=== PATIENT | male | born 1965 | race Caucasian/White ===

== ENCOUNTER 2016-06-22 16:35 | Emergency (ER) | payer OTHER ==
[~2016-06-22 16:35] MED LIST: ACET-1256 PO; AMOX875T PO; ASPI-435 PO; DOCU-94 PO; FAMO1TAB PO; LRS10 PO; MAGN64TA4 PO; MIDO10TA PO; MULT-506 PO; OXYC1TAB3 PO; POLY1POW2 PO; SENN8.6T13 PO; SULF800T23 PO
[2016-06-22 16:38] VITALS: TEMP 36.8
--- NOTE | 2016-06-22 16:59 | EMERGENCY ROOM VISIT NOTE ---
History Report prepared by Juan: Raiza Velazquez Under the Supervision of: Dr. Loida Gore M.D. First contact with patient: 16:44 Chief Complaint: URINARY SYMPTOMS Stated Complaint: CATHETER History of Present Illness The patient is a 51 year old male who presents to the Emergency Room with complaints of a possibly plugged urinary catheter. He reports he noticed " chunky blood" coming from his catheter today, and decreased urinary output. He has a history of penile and metastatic testicular cancer and states he has had a catheter for about 10 years. He has undergone both a penectomy and radical orchiectomy. He follows with [facility] in [place] for Urology care. The patient is a bilateral above the knee amputee. He has a suprapubic wound from trauma related to clothing, but has had it debrided at [facility] in the past. He denies any recent fevers and states he has felt pretty good recently. Source of History: patient Onset: [employer] Position: other (penis) Associated Symptoms: + urinary symptoms, No fevers Review of Systems See HPI for pertinent positives & negatives. A total of 10 systems reviewed and were otherwise negative. Past Medical & Surgical Medical Problems: (1) Anemia (2) Cardiomegaly (3) Esophageal Reflux (4) Gangrene (5) Hyperlipidemia Nec/Nos (6) Hypertension Nos (7) metastatic testicular cancer (8) Osteomyelitis (9) Paraplegia (10) Pyelonephritis Nos (11) Testicular cancer (12) UTI (urinary tract infection) Surgical Problems: (1) left inguinal radical orchiectomy Family History No pertinent family history Social History Smoking Status: Never Smoker Alcohol Use: none Drug Use: none Marital Status: single Housing Status: lives with family Occupation Status: disabled Current/Historical Medications Scheduled Amoxicillin & Pot Clavulanate (Augmentin 875-125 mg), 1 TAB PO BID Aspirin (Aspirin 81), 1 TAB PO DAILY Ciprofloxacin Hcl (Cipro), 500 MG PO BID Diazepam (Diazepam), 1.5 TAB PO DAILY Famotidine (Acid Controller Maximum S), 1 TAB PO BID Magnesium Chloride (Mag64), 2 TABS PO DAILY Metoprolol Tartrate (Lopressor) (Lopressor), 25 MG PO BID Midodrine Hcl (Midodrine Hcl), 5 MG PO TID Multivitamin (Multivitamin), 1 TAB PO DAILY Polyethylene Glycol 3350 (Bulk (Polyethylene Glycol 3350), 17 GM PO DAILY Sulfa/Trimethoprim (Bactrim Ds 800MG/160MG), 1 TAB PO BID Zolpidem Tartrate (Zolpidem Tartrate), 10 MG PO HS Allergies Coded Allergies: No Known Allergies (Verified , 08/10/15) Physical Exam Vital Signs Date Time Temp Pulse Resp B/P Pulse Ox O2 Delivery O2 Flow Rate FiO2 06/22/16 18:27 65 18 83/48 96 06/22/16 17:55 65 18 83/48 96 Room Air 06/22/16 16:38 36.8 60 20 112/73 96 Room Air Physical Exam Vital signs reviewed. General: Well-appearing 51 year old male, in no significant distress. HEENT: No scleral icterus, PERRLA, neck supple. Atraumatic. Cardiovascular: Regular rate and rhythm, no extra sounds. Pulmonary: Clear to auscultation bilaterally, normal work of breathing. Abdomen: Soft, nontender, nondistended, positive bowel sounds. Suprapubic wound from trauma related to clothing/buckle. : Post-surgical changes to genitals, catheter in place. Musculoskeletal: Atraumatic, no peripheral edema. Neurologic: Patient awake alert and oriented x 3, full strength in all 4 extremities. Cranial nerves 2 through 12 grossly intact. Skin: Warm, dry, no rash Medical Decision & Procedures Laboratory Results Test 06/22/16 17:05 Urine Color YELLOW Urine Appearance CLOUDY (CLEAR) Urine pH 6.0 (4.5-7.5) Urine Specific [place] 1.007 (1.000-1.030) Urine Protein NEG (NEG) Urine Glucose (UA) NEG (NEG) Urine Ketones NEG (NEG) Urine Occult Blood 1+ (NEG) Urine Nitrite POS (NEG) Urine Bilirubin NEG (NEG) Urine Urobilinogen NEG (NEG) Urine Leukocyte Esterase LARGE (NEG) Urine WBC (Auto) >30 /hpf (0-5) Urine RBC (Auto) 0-4 /hpf (0-4) Urine Hyaline Casts (Auto) 5-10 /lpf (0-5) Urine Epithelial Cells (Auto) 5-10 /lpf (0-5) Urine Bacteria (Auto) NEG (NEG) Urine Pathogenic Casts 0-3 WBC CASTS /lpf (0) Laboratory results per my review. Medications Administered Medications (Trade) Dose Ordered Sig/Zach Route Start Time Stop Time Status Last Admin Dose Admin Ciprofloxacin (Cipro Tab) 500 mg NOW STAT PO 06/22/16 17:46 06/22/16 17:47 DC 06/22/16 17:58 500 MG ED Course 1654: Past medical records reviewed. The patient was evaluated in room A2. A complete history and physical examination was performed. 174: Cipro 500 mg PO. 1814: I reevaluated the patient. He is feeling well. I discussed his results and discharge instructions and he verbalized complete understanding and agreement. Medical Decision Differential diagnosis: Etiologies such as infection, dysuria, hematuria, urethritis, cystitis. This patient was evaluated and appeared to be in no significant distress. Nursing staff had replaced the patient's Cloud catheter which was draining well. Urinalysis was obtained and is significant for infectious signs and will be sent for culture. The patient takes Augmentin and Bactrim for chronic sacral wound. Upon review the patient's urine cultures, Cipro will be added for coverage of the UTI. Patient is aware of the plan and agrees. He will follow-up with his physician for reevaluation this week and return to the ER for worsening of symptoms or any medical concerns. Impression Primary Impression: Malfunction of indwelling urinary catheter Additional Impression: UTI (urinary tract infection) Scribe Attestation The scribe's documentation has been prepared under my direction and personally reviewed by me in its entirety. I confirm that the note above accurately reflects all work, treatment, procedures, and medical decision making performed by me. Departure Information Dispostion Home / Self-Care Prescriptions Ciprofloxacin Hcl (CIPRO) 500 Mg Tab 500 MG PO BID, #14 TAB Prov: Loida Gore M.D. 06/22/16 Referrals Titi Clemente M.D. (PCP) Patient Instructions My [facility] Additional Instructions Diagnosis: UTI, blocked catheter Cipro 500 mg twice daily for 7 days. Drink plenty of fluids. Follow up with your doctor for reevaluation. Return to emergency for worsening of symptoms or any medical concerns. Problem Qualifiers Primary Impression: Malfunction of indwelling urinary catheter Encounter type: initial encounter Qualified Codes: T83.011A - Breakdown ( mechanical) of indwelling urethral catheter, initial encounter Additional Impression: UTI (urinary tract infection) Urinary tract infection type: catheter-associated UTI Indwelling urinary catheter type: indwelling urethral catheter Encounter type: initial encounter Qualified Codes: T83.511A - Infection and inflammatory reaction due to indwelling urethral catheter, initial encounter; N39.0 - Urinary tract infection, site not specified
[2016-06-22] MEDS ORDERED: MIDO5TAB PO (17:24)
[2016-06-22] MEDS ORDERED: METO25TA56 PO (17:24)
[2016-06-22] MEDS ORDERED: VLM2 PO (17:25)
[2016-06-22 17:30] LABS: URINE APPEARANCE CLOUDY (CLEAR); URINE BILIRUBIN NEG (NEG); URINE COLOR YELLOW; URINE NITRITE POS (NEG); URINE SPECIFIC GRAVITY 1.007 (1.000-1.030); UROBILINOGEN NEG (NEG); ZZURINE CULT IF INDIC CATH YES
[2016-06-22 17:32] LABS: MANUAL MICROSCOPIC REQUIRED? NO; REVIEW REQ? YES
[2016-06-22] MEDS ORDERED: ZOLP10TA6 PO (17:36)
[2016-06-22] MEDS ORDERED: CIPROFLOXACIN 500 MG TAB PO STA (17:46)
[2016-06-22 17:56] LABS: URINE PATH CASTS 0-3 WBC CASTS /lpf (0)
[2016-06-22] MEDS ORDERED: CIPR-255 PO (18:14)
[2016-06-22 18:27] VITALS: BP 83/48; PULSE 65; O2SAT 96
== END 2016-06-22 18:28 | disposition home or self-care (01) ==
LOC: C.EDB 16:36 → C.EDA 18:28
DX: T83.192A Other mechanical complication of indwelling ureteral stent, initial encounter (principal); N39.0 Urinary tract infection, site not specified; Y84.6 Urinary catheterization as the cause of abnormal reaction of the patient, or of later complication, without mention of misadventure at the time of the procedure; K21.9 Gastro-esophageal reflux disease without esophagitis; E78.5 Hyperlipidemia, unspecified; I10 Essential (primary) hypertension; G82.20 Paraplegia, unspecified; Z85.47 Personal history of malignant neoplasm of testis; Z79.82 Long term (current) use of aspirin

== ENCOUNTER 2016-07-17 11:17 | Emergency (ER) | payer OTHER ==
[~2016-07-17 11:17] MED LIST changes: -ACET-1256 PO; +CIPR-255 PO; -DOCU-94 PO; -LRS10 PO; +METO25TA56 PO; -MIDO10TA PO; +MIDO5TAB PO; -OXYC1TAB3 PO; -SENN8.6T13 PO; +VLM2 PO; +ZOLP10TA6 PO
[2016-07-17 11:20] VITALS: TEMP 36.5
[2016-07-17 13:29] LABS: URINE APPEARANCE CLEAR (CLEAR); URINE BILIRUBIN NEG (NEG); URINE COLOR YELLOW; URINE NITRITE NEG (NEG); URINE PH 6.5 (4.5-7.5); UROBILINOGEN NEG (NEG); ZZURINE CULT IF INDIC CATH YES
[2016-07-17 13:36] LABS: MANUAL MICROSCOPIC REQUIRED? NO; REVIEW REQ? YES
[2016-07-17 13:43] VITALS: BP 93/51; PULSE 49; O2SAT 100
--- NOTE | 2016-07-17 16:56 | EMERGENCY ROOM VISIT NOTE ---
History First contact with patient: 12:12 Chief Complaint: CATHETER REPLACEMENT Stated Complaint: CATH TUBE IS PLUGGED UP AND CAN'T GET OFF History of Present Illness The patient is a 51 year old male who presents to the Emergency Room with complaints of a plugged urinary catheter. The patient reports that he has had no urinary output since last night, and reports that his abdomen is now getting bigger with more pressure. The patient has a history of penile and metastatic testicular cancer and states he has had a catheter for about 10 years. He has undergone both a penectomy and radical orchiectomy. He follows with urology at [facility] in [place]. He has a suprapubic wound as well that has been debrided at [facility] in the past. He denies any recent fevers or chills. His last catheter replacement was last week at the emergency department in [place]. Review of Systems 10 system review was performed and was negative except for pertinent positives and negatives as indicated in history of present illness Past Medical/Surgical History Medical Problems: (1) Anemia (2) Cardiomegaly (3) Esophageal Reflux (4) Gangrene (5) Hyperlipidemia Nec/Nos (6) Hypertension Nos (7) metastatic testicular cancer (8) Osteomyelitis (9) Paraplegia (10) Pyelonephritis Nos (11) Testicular cancer (12) UTI (urinary tract infection) Surgical Problems: (1) left inguinal radical orchiectomy Family History No pertinent family history Social History Smoking Status: Never Smoker Alcohol Use: none Drug Use: none Marital Status: single Housing Status: lives with family Occupation Status: disabled Current/Historical Medications Scheduled Amoxicillin & Pot Clavulanate (Augmentin 875-125 mg), 1 TAB PO BID Aspirin (Aspirin 81), 1 TAB PO DAILY Diazepam (Diazepam), 1.5 TAB PO DAILY Famotidine (Acid Controller Maximum S), 1 TAB PO BID Magnesium Chloride (Mag64), 2 TABS PO DAILY Metoprolol Tartrate (Lopressor) (Lopressor), 25 MG PO BID Midodrine Hcl (Midodrine Hcl), 5 MG PO TID Multivitamin (Multivitamin), 1 TAB PO DAILY Polyethylene Glycol 3350 (Bulk (Polyethylene Glycol 3350), 17 GM PO DAILY Sulfa/Trimethoprim (Bactrim Ds 800MG/160MG), 1 TAB PO BID Zolpidem Tartrate (Zolpidem Tartrate), 10 MG PO HS Allergies Coded Allergies: No Known Allergies (Verified , 07/17/16) Physical Exam Vital Signs Date Time Temp Pulse Resp B/P Pulse Ox O2 Delivery O2 Flow Rate FiO2 07/17/16 13:43 49 20 93/51 100 07/17/16 11:30 62 18 133/75 95 Room Air 07/17/16 11:20 36.5 62 18 76/58 94 Room Air Physical Exam CONSTITUTIONAL: Healthy and well nourished. Alert and oriented X 3 with positive affect. HEENT: Normocephalic, atraumatic. Pupils equal, round and reactive. NECK: Full active range of motion without discomfort. RESPIRATORY: Clear to auscultation bilaterally with no wheezing, crackles, rhonchi or stridor. CARDIOVASCULAR: Regular rate and rhythm with no murmurs, rubs or gallops. GASTROINTESTINAL: Bowel sounds present in all quadrants. Abdomen is protuberant but soft and nontender to palpation. No CVA tenderness. MUSCULOSKELETAL: The patient has bilateral above-knee amputations. INTEGUMENTARY: No rash or other significant dermatologic conditions noted. NEUROLOGIC: No focal neurologic deficits noted. Medical Decision & Procedures Laboratory Results Test 07/17/16 13:05 Urine Color YELLOW Urine Appearance CLEAR (CLEAR) Urine pH 6.5 (4.5-7.5) Urine Specific [place] 1.010 (1.000-1.030) Urine Protein 2+ (NEG) Urine Glucose (UA) NEG (NEG) Urine Ketones NEG (NEG) Urine Occult Blood 3+ (NEG) Urine Nitrite NEG (NEG) Urine Bilirubin NEG (NEG) Urine Urobilinogen NEG (NEG) Urine Leukocyte Esterase MODERATE (NEG) Urine WBC (Auto) >30 /hpf (0-5) Urine RBC (Auto) >30 /hpf (0-4) Urine Hyaline Casts (Auto) 1-5 /lpf (0-5) Urine Epithelial Cells (Auto) 10-20 /lpf (0-5) Urine Bacteria (Auto) NEG (NEG) Urine Renal Epithelial Cells /lpf (0-5) Urinalysis was reviewed. Cultures are pending. ED Course Patient history and physical exam were performed. Nurse's notes were reviewed. Vital signs were reviewed. The patient is afebrile. Initial blood pressure was 76/58. The patient reports that his blood pressure is usually low. Cloud catheter replacement was performed. Urinalysis is not suggestive of infection. Urine cultures are otherwise pending. The patient was instructed to follow- up with his urologist as needed for further management. The patient was happy with plan of care, and denied any discomfort at the time of discharge. Medical Decision Impression Primary Impression: Complication of catheter Departure Information Referrals Titi Clemente M.D. (PCP) Patient Instructions My [facility] Problem Qualifiers Primary Impression: Complication of catheter Encounter type: initial encounter Qualified Codes: T85.9XXA - Unspecified complication of internal prosthetic device, implant and graft, initial encounter
--- NOTE | 2016-07-19 15:01 | Pharmacy Progress Note ---
ED Pharmacist Culture FollowUp Date of Service: Jul 19, 2016. Yeast not C. albicans at 10,000 CFU/mL growing in urine culture. Spoke with Sven Carranza PA-C - likely contaminant. Patient has close follow-up with urology. No intervention required at this time.
== END 2016-07-17 13:45 | disposition home or self-care (01) ==
LOC: C.EDB 11:18 → C.EDC 13:45
DX: T85.9XXA Unspecified complication of internal prosthetic device, implant and graft, initial encounter (principal); Y84.6 Urinary catheterization as the cause of abnormal reaction of the patient, or of later complication, without mention of misadventure at the time of the procedure; K21.9 Gastro-esophageal reflux disease without esophagitis; E78.5 Hyperlipidemia, unspecified; G82.20 Paraplegia, unspecified; Z85.47 Personal history of malignant neoplasm of testis; Z79.82 Long term (current) use of aspirin

== ENCOUNTER → 2016-12-05 | Outpatient (CLI) | payer OTHER ==
[~2016-12-05] MED LIST changes: -CIPR-255 PO
[2016-12-05 17:04] LABS: BASO % 0.3 %; BASO ABS # 0.02 K/uL (0-0.2); COMPLETE YES; EOS % 4.1 %; HEMATOCRIT 38.7 % (42-52); IG% 0.2 %; LYMPH % 18.9 %; MEAN CELL VOLUME 77.1 fL (80-100); MEAN CORPUSCULAR HEMOGLOBIN 25.5 pg (25-34); MEAN CORPUSCULAR HGB CONC 33.1 g/dl (32-36); MEAN PLATELET VOLUME 10.2 fL (7.4-10.4); MONO % 9.3 %; NEUT % 67.2 %; PLATELET COUNT 233 K/uL (130-400); RED BLOOD COUNT 5.02 M/uL (4.7-6.1); WHITE BLOOD COUNT 5.81 K/uL (4.8-10.8)
[2016-12-05 17:27] LABS: ALT/SGPT 15 U/L (12-78); AST/SGOT 8 U/L (15-37); BLOOD UREA NITROGEN 8 mg/dl (7-18); BUN/CREATININE RATIO 14.4 (10-20); CALCIUM 8.6 mg/dl (8.5-10.1); CARBON DIOXIDE 28 mmol/L (21-32); CHLORIDE 112 mmol/L (98-107); CREATININE 0.55 mg/dl (0.60-1.40); GLUCOSE 75 mg/dl (70-99); POTASSIUM 3.6 mmol/L (3.5-5.1); SODIUM 145 mmol/L (136-145)
[2016-12-05 17:37] LABS: ALB/GLOB RATIO 0.8 (0.9-2); ALKALINE PHOSPHATASE 92 U/L (45-117); THYROID STIMULATING HORMONE 0.911 uIu/ml (0.300-4.500)
--- NOTE | 2016-12-13 11:34 | CODING QUERY MEDICAL NECESSITY ---
CQSUPPORTING DIAGNOSIS NEEDED A supporting diagnosis is required for the test/procedure performed on this patient in order for us to be reimbursed by the patient's insurance. Please provide a supporting diagnosis for the following test/procedure listed below next to the test name along with your signature. *If there is no additional diagnosis for this patient that would support the following test/procedure please document that below next to the test/procedure. Test(s)/Procedure(s) that require a supporting diagnosis: DOS 12/05/16 VITAMIN D TEST VITAMIN B12 TEST Provider Signature: Date: Thank you Desiree Richards Health Information Management Once completed, please kindly fax back to [phone] For questions please call [phone]
== END | disposition home or self-care (01) ==
LOC: C.LABBC 13:39
PROVIDERS: ATTEND Internal Medicine Geriatric Medicine
DX: G47.30 Sleep apnea, unspecified (principal); I42.2 Other hypertrophic cardiomyopathy; M86.9 Osteomyelitis, unspecified; D64.9 Anemia, unspecified; K21.9 Gastro-esophageal reflux disease without esophagitis

== ENCOUNTER → 2017-05-17 | Outpatient (CLI) | payer OTHER ==
[~2017-05-17] MED LIST changes: +ASCO10003 PO; +CYAN10005 PO; +DOXY100C2 PO; +GABA-112 PO; +NITR-5 PO; +SLWMEC PO; +VITAMIN B-12 PO; +VITAMIN C PO
== END | disposition home or self-care (01) ==
LOC: C.LABBC 12:58
PROVIDERS: ATTEND Family Medicine Adult Medicine
DX: N39.0 Urinary tract infection, site not specified (principal)

== ENCOUNTER 2017-06-17 17:55 | Emergency (ER) | payer OTHER ==
[~2017-06-17 17:55] MED LIST changes: -ASCO10003 PO; -CYAN10005 PO; -DOXY100C2 PO; -GABA-112 PO; -NITR-5 PO; -SLWMEC PO; -VITAMIN B-12 PO; -VITAMIN C PO
[2017-06-17 17:59] VITALS: TEMP 36.9
[2017-06-17] MEDS ORDERED: ONDANSETRON INJ 2 MG/ML 2 ML VIAL IV STA (18:09)
[2017-06-17] MEDS ORDERED: MoRPHine SULFATE 4 MG/ML 1 ML CARP\\VIAL IV STA (18:09)
[2017-06-17 19:00] LABS: BASO % 0.5 %; BASO ABS # 0.02 K/uL (0-0.2); EOS ABS # 0.22 K/uL (0-0.5); HEMOGLOBIN 12.2 g/dL (14.0-18.0); LYMPH % 23.2 %; LYMPH ABS # 1.02 K/uL (1.2-3.4); MEAN CELL VOLUME 76.6 fL (80-100); MEAN CORPUSCULAR HGB CONC 33.9 g/dl (32-36); MEAN PLATELET VOLUME 10.1 fL (7.4-10.4); MONO % 10.9 %; MONO ABS # 0.48 K/uL (0.11-0.59); NEUT % 60.4 %; NEUT ABS # 2.65 K/uL (1.4-6.5); PLATELET COUNT 167 K/uL (130-400); RED CELL DISTRIBUTION WIDTH CV 16.1 % (11.5-14.5); RED CELL DISTRIBUTION WIDTH SD 44.2 fL (36.4-46.3); WHITE BLOOD COUNT 4.39 K/uL (4.8-10.8)
[2017-06-17 19:17] LABS: ALBUMIN 2.7 gm/dl (3.4-5.0); ALT/SGPT 13 U/L (12-78); AST/SGOT 9 U/L (15-37); BLOOD UREA NITROGEN 13 mg/dl (7-18); CALCIUM 7.9 mg/dl (8.5-10.1); CARBON DIOXIDE 30 mmol/L (21-32); GLUCOSE 94 mg/dl (70-99); LIPASE 100 U/L (73-393); POTASSIUM 3.2 mmol/L (3.5-5.1); SODIUM 142 mmol/L (136-145)
[2017-06-17 19:20] LABS: ALKALINE PHOSPHATASE 73 U/L (45-117); TOTAL PROTEIN 6.6 gm/dl (6.4-8.2)
[2017-06-17] MEDS ORDERED: POTASSIUM CHLORIDE 10 MEQ TABCR PO STA (19:22)
--- NOTE | 2017-06-17 19:31 | DIAGNOSTIC IMAGING REPORT ---
CT SCAN OF THE ABDOMEN AND PELVIS WITHOUT CONTRAST CLINICAL HISTORY: Left flank pain COMPARISON STUDY: 08/10/2015 TECHNIQUE: CT scan of the abdomen and pelvis was performed from the lung bases to the proximal femurs. Images are reviewed in the axial, sagittal, and coronal planes. IV contrast was not administered for this examination. A dose lowering technique was utilized adhering to the principles of ALARA. CT DOSE: 1334.22 mGy.cm FINDINGS: Lower chest: There is lower lobe bronchial wall thickening. There is a small left pleural effusion and [id number] right pleural effusion. The heart is enlarged Liver: The unenhanced liver is normal in size, contour, and attenuation. There is no intrahepatic biliary ductal dilatation. Gallbladder: There are multiple gallbladder calculi. There is mild infiltration of the pericholecystic fat. Clinical correlation regards to acute cholecystitis is recommended. Spleen: Normal in size and attenuation. Pancreas: Unremarkable. Adrenal glands: Unremarkable. Kidneys: No left kidney is visualized. No right renal calculi are evident. There is no significant right-sided hydronephrosis. There is right-sided perinephric stranding. Bowel: There are no transition zones indicate bowel obstruction. There is no acute diverticulitis. There are no findings to indicate acute appendicitis. Appendix is not visualized with certainty. Peritoneum: There is no intraperitoneal free air or abdominal ascites. Vasculature: There are postsurgical changes of prior aortobiiliac stenting area the stent grafts appear compressed and are likely stenotic. Adenopathy: None. Pelvic viscera: There is indwelling Cloud catheter. Skeletal structures: There are chronic bilateral hip subluxations. The proximal right femur demonstrates a bone within bone appearance. There are persistent destructive changes at the lumbar sacral junction with a lumbosacral pseudoarticulation. There is angulation and subluxation of the sacrum with respect to the lower lumbar spine. There is extensive soft tissue/granulation tissue surrounding the lumbosacral junction IMPRESSION: 1. No left kidney is visualized 2. No right renal calculi are evident. 3. Cholelithiasis and mild pericholecystic infiltration. The findings are viewed as suspicious for acute cholecystitis and clinical correlation this regard is advocated 4. No evidence of bowel obstruction. No evidence of free air 5. Multiple skeletal abnormalities including destructive changes the lumbosacral junction. There is a lumbosacral pseudoarticulation, and there is anterior subluxation and angulation of the sacrum with respect to the lumbar spine. There is extensive soft tissue/granulation tissue surrounding the lumbosacral junction 6. Evidence of prior aortoiliac stents. Post stent grafts appear compressed and are likely stenotic/occluded. 7. Chronic bilateral hip subluxations of bilateral hip effusions 8. Small moderate right pleural effusion, small left pleural effusion. Bilateral lower lobe bronchial wall thickening. Electronically signed by: Jerardo Eller M.D. 06/17/2017 7:30 PM Dictated Date/Time: 06/17/2017 7:18 PM
--- NOTE | 2017-06-17 20:47 | DIAGNOSTIC IMAGING REPORT ---
CHEST ONE VIEW PORTABLE CLINICAL HISTORY: Shortness of breath. COMPARISON STUDY: 08/10/2015 CT scan of the abdomen pelvis dated 06/17/2017 FINDINGS: The heart is enlarged. There is pulmonary vascular congestion. There are suspected bilateral pleural effusions right greater than left. Increased markings in the lung bases, likely correspond to the bronchial wall thickening described on the recent CT scan. There is a left subclavian A-Port catheter present. IMPRESSION: Cardiomegaly with radiographic evidence of mild congestive failure/fluid overload. Electronically signed by: Jerardo Eller M.D. 06/17/2017 8:46 PM Dictated Date/Time: 06/17/2017 8:44 PM
[2017-06-17] MEDS ORDERED: DOXYCYCLINE HYCLATE 100 MG CAP PO ONE (21:00)
[2017-06-17] MEDS ORDERED: FUROSEMIDE INJ 20 MG in SYRINGE 0 ML IV ONE (21:00)
[2017-06-17] MEDS ORDERED: DOXY100C2 PO (21:01)
[2017-06-17] MEDS ORDERED: FUROSEMIDE 40 MG/4 ML VIAL ONE (21:06)
[2017-06-17 21:21] VITALS: BP 137/83; PULSE 50; O2SAT 92
--- NOTE | 2017-06-18 00:12 | EMERGENCY ROOM VISIT NOTE ---
History Report prepared by Juan: Иван Davis Under the Supervision of: Dr. Cole Sykes M.D. First contact with patient: 17:58 Chief Complaint: FLANK PAIN Stated Complaint: FLANK PAIN History of Present Illness The patient is a 52 year old male who presents to the Emergency Room with complaints of intermittent left sided abdominal/flank pain. The patient states that his left sided pain has been "on and off" for the past week, but worsened today. He describes the pain as a "dull" sensation, and notes that when he has the pain he feels a little short of breath. He otherwise denies any other shortness of breath. He also denies any associated chest pains or vomiting episodes. The patient has a catheter placed and is on an antibiotic for a urinary infection. He has no history of kidney stones. Source of History: patient Onset: 1 week Position: abdomen, back (left flank) Quality: dull Timing: intermittent, worsening Associated Symptoms: + vomiting, + urinary symptoms, No chest pain, No SOB Review of Systems See HPI for pertinent positives & negatives. A total of 10 systems reviewed and were otherwise negative. Past Medical & Surgical Medical Problems: (1) Anemia (2) Cardiomegaly (3) Esophageal Reflux (4) Gangrene (5) Hyperlipidemia Nec/Nos (6) Hypertension Nos (7) metastatic testicular cancer (8) Osteomyelitis (9) Paraplegia (10) Pyelonephritis Nos (11) Testicular cancer (12) UTI (urinary tract infection) Surgical Problems: (1) left inguinal radical orchiectomy Family History No pertinent family history Social History Smoking Status: Never Smoker Alcohol Use: none Drug Use: none Marital Status: single Housing Status: lives with family Occupation Status: disabled Current/Historical Medications Scheduled Amoxicillin & Pot Clavulanate (Augmentin 875-125 mg), 1 TAB PO BID Aspirin (Aspirin 81), 1 TAB PO DAILY Diazepam (Diazepam), 1.5 TAB PO DAILY Doxycycline Hyclate (Vibramycin), 100 MG PO BID Famotidine (Acid Controller Maximum S), 1 TAB PO BID Magnesium Chloride (Mag64), 2 TABS PO DAILY Metoprolol Tartrate (Lopressor) (Lopressor), 25 MG PO BID Midodrine Hcl (Midodrine Hcl), 5 MG PO TID Multivitamin (Multivitamin), 1 TAB PO DAILY Polyethylene Glycol 3350 (Bulk (Polyethylene Glycol 3350), 17 GM PO DAILY Sulfa/Trimethoprim (Bactrim Ds 800MG/160MG), 1 TAB PO BID Zolpidem Tartrate (Zolpidem Tartrate), 10 MG PO HS Allergies Coded Allergies: No Known Allergies (Verified , 07/17/16) Physical Exam Vital Signs Date Time Temp Pulse Resp B/P (MAP) Pulse Ox O2 Delivery O2 Flow Rate FiO2 06/17/17 21:21 50 16 137/83 92 06/17/17 18:59 52 16 133/90 95 Room Air 06/17/17 18:15 61 06/17/17 17:59 36.9 77 12 155/88 96 Room Air Physical Exam Constitutional: Vital signs reviewed. Eyes: Pupils are equal round reactive to light. Conjunctiva are noninjected. ENT: Pharynx is clear without erythema or exudate. Mucous membranes are moist. Neck supple without meningeal signs. Respiratory: Clear to auscultation bilaterally. Breath sounds are equal bilaterally. Cardiovascular: Regular rate and rhythm. No rubs or gallops. GI: Soft, nondistended and nontender. Bowel sounds are present. Musculoskeletal: There is left lower flank tenderness without erythema or increased warmth. There is no CVA tenderness. 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 Integumentary: No cyanosis. Neurological: The patient is awake and alert. Patient is a paraplegic. Psychiatric: Normal affect. Medical Decision & Procedures ER Provider Diagnostic Interpretation: Radiology results as stated below per my review and the radiologist's interpretation: CHEST ONE VIEW PORTABLE CLINICAL HISTORY: Shortness of breath. COMPARISON STUDY: 08/10/2015 CT scan of the abdomen pelvis dated 06/17/2017 FINDINGS: The heart is enlarged. There is pulmonary vascular congestion. There are suspected bilateral pleural effusions right greater than left. Increased markings in the lung bases, likely correspond to the bronchial wall thickening described on the recent CT scan. There is a left subclavian A-Port catheter present. IMPRESSION: Cardiomegaly with radiographic evidence of mild congestive failure/fluid overload. Electronically signed by: Jerardo Eller M.D. 06/17/2017 8:46 PM Dictated Date/Time: 06/17/2017 8:[address] SCAN OF THE ABDOMEN AND PELVIS WITHOUT CONTRAST CLINICAL HISTORY: Left flank pain COMPARISON STUDY: 08/10/2015 TECHNIQUE: CT scan of the abdomen and pelvis was performed from the lung bases to the proximal femurs. Images are reviewed in the axial, sagittal, and coronal planes. IV contrast was not administered for this examination. A dose lowering technique was utilized adhering to the principles of ALARA. CT DOSE: 1334.22 mGy.cm FINDINGS: Lower chest: There is lower lobe bronchial wall thickening. There is a small left pleural effusion and [id number] right pleural effusion. The heart is enlarged Liver: The unenhanced liver is normal in size, contour, and attenuation. There is no intrahepatic biliary ductal dilatation. Gallbladder: There are multiple gallbladder calculi. There is mild infiltration of the pericholecystic fat. Clinical correlation regards to acute cholecystitis is recommended. Spleen: Normal in size and attenuation. Pancreas: Unremarkable. Adrenal glands: Unremarkable. Kidneys: No left kidney is visualized. No right renal calculi are evident. There is no significant right-sided hydronephrosis. There is right-sided perinephric stranding. Bowel: There are no transition zones indicate bowel obstruction. There is no acute diverticulitis. There are no findings to indicate acute appendicitis. Appendix is not visualized with certainty. Peritoneum: There is no intraperitoneal free air or abdominal ascites. Vasculature: There are postsurgical changes of prior aortobiiliac stenting area the stent grafts appear compressed and are likely stenotic. Adenopathy: None. Pelvic viscera: There is indwelling Cloud catheter. Skeletal structures: There are chronic bilateral hip subluxations. The proximal right femur demonstrates a bone within bone appearance. There are persistent destructive changes at the lumbar sacral junction with a lumbosacral pseudoarticulation. There is angulation and subluxation of the sacrum with respect to the lower lumbar spine. There is extensive soft tissue/granulation tissue surrounding the lumbosacral junction IMPRESSION: 1. No left kidney is visualized 2. No right renal calculi are evident. 3. Cholelithiasis and mild pericholecystic infiltration. The findings are viewed as suspicious for acute cholecystitis and clinical correlation this regard is advocated 4. No evidence of bowel obstruction. No evidence of free air 5. Multiple skeletal abnormalities including destructive changes the lumbosacral junction. There is a lumbosacral pseudoarticulation, and there is anterior subluxation and angulation of the sacrum with respect to the lumbar spine. There is extensive soft tissue/granulation tissue surrounding the lumbosacral junction 6. Evidence of prior aortoiliac stents. Post stent grafts appear compressed and are likely stenotic/occluded. 7. Chronic bilateral hip subluxations of bilateral hip effusions 8. Small moderate right pleural effusion, small left pleural effusion. Bilateral lower lobe bronchial wall thickening. Electronically signed by: Jerardo Eller M.D. 06/17/2017 7:30 PM Dictated Date/Time: 06/17/2017 7:18 PM Laboratory Results 06/17/17 18:52 Red Blood Count 4.70, Mean Corpuscular Volume 76.6, Mean Corpuscular Hemoglobin 26.0, Mean Corpuscular Hemoglobin Concent 33.9, Mean Platelet Volume 10.1, Neutrophils (%) (Auto) 60.4, Lymphocytes (%) (Auto) 23.2, Monocytes (%) (Auto) 10.9, Eosinophils (%) (Auto) 5.0, Basophils (%) (Auto) 0.5, Neutrophils # (Auto ) 2.65, Lymphocytes # (Auto) 1.02, Monocytes # (Auto) 0.48, Eosinophils # (Auto ) 0.22, Basophils # (Auto) 0.02 06/17/17 18:52 Test 06/17/17 18:52 06/17/17 20:25 White Blood Count 4.39 K/uL (4.8-10.8) Red Blood Count 4.70 M/uL (4.7-6.1) Hemoglobin 12.2 g/dL (14.0-18.0) Hematocrit 36.0 % (42-52) Mean Corpuscular Volume 76.6 fL (80-100) Mean Corpuscular Hemoglobin 26.0 pg (25-34) Mean Corpuscular Hemoglobin Concent 33.9 g/dl (32-36) Platelet Count 167 K/uL (130-400) Mean Platelet Volume 10.1 fL (7.4-10.4) Neutrophils (%) (Auto) 60.4 % Lymphocytes (%) (Auto) 23.2 % Monocytes (%) (Auto) 10.9 % Eosinophils (%) (Auto) 5.0 % Basophils (%) (Auto) 0.5 % Neutrophils # (Auto) 2.65 K/uL (1.4-6.5) Lymphocytes # (Auto) 1.02 K/uL (1.2-3.4) Monocytes # (Auto) 0.48 K/uL (0.11-0.59) Eosinophils # (Auto) 0.22 K/uL (0-0.5) Basophils # (Auto) 0.02 K/uL (0-0.2) RDW Standard Deviation 44.2 fL (36.4-46.3) RDW Coefficient of Variation 16.1 % (11.5-14.5) Immature Granulocyte % (Auto) 0.0 % Immature Granulocyte # (Auto) 0.00 K/uL (0.00-0.02) Anion Gap 5.0 mmol/L (3-11) Estimated GFR () 135.9 Estimated GFR (Non- 117.2 BUN/Creatinine Ratio 21.2 (10-20) Calcium Level 7.9 mg/dl (8.5-10.1) Total Bilirubin 0.4 mg/dl (0.2-1) Direct Bilirubin 0.1 mg/dl (0-0.2) Aspartate Amino Transf (AST/SGOT) 9 U/L (15-37) Alanine Aminotransferase (ALT/SGPT) 13 U/L (12-78) Alkaline Phosphatase 73 U/L (45-117) Total Protein 6.6 gm/dl (6.4-8.2) Albumin 2.7 gm/dl (3.4-5.0) Lipase 100 U/L (73-393) Urine Color YELLOW Urine Appearance CLEAR (CLEAR) Urine pH 5.5 (4.5-7.5) Urine Specific [place] 1.012 (1.000-1.030) Urine Protein NEG (NEG) Urine Glucose (UA) NEG (NEG) Urine Ketones NEG (NEG) Urine Occult Blood NEG (NEG) Urine Nitrite NEG (NEG) Urine Bilirubin NEG (NEG) Urine Urobilinogen NEG (NEG) Urine Leukocyte Esterase TRACE (NEG) Urine WBC (Auto) 1-5 /hpf (0-5) Urine RBC (Auto) 0-4 /hpf (0-4) Urine Hyaline Casts (Auto) 0 /lpf (0-5) Urine Epithelial Cells (Auto) 5-10 /lpf (0-5) Urine Bacteria (Auto) NEG (NEG) Laboratory results as reviewed by me. Medications Administered Medications (Trade) Dose Ordered Sig/Zach Route Start Time Stop Time Status Last Admin Dose Admin Morphine Sulfate (MoRPHine SULFATE INJ) 4 mg ONE STAT IV 06/17/17 18:09 06/17/17 18:11 DC 06/17/17 18:53 4 MG Ondansetron HCl (Zofran Inj) 4 mg NOW STAT IV 06/17/17 18:09 06/17/17 18:11 DC 06/17/17 18:52 4 MG Potassium Chloride (Klor-Con M10) 40 meq NOW STAT PO 06/17/17 19:22 06/17/17 19:23 DC 06/17/17 20:21 40 MEQ Doxycycline Hyclate (Vibramycin Cap) 100 mg ONE ONCE PO 06/17/17 21:00 06/17/17 21:01 DC 06/17/17 21:09 100 MG Furosemide (Lasix Inj) 40 mg STK-MED ONCE .ROUTE 06/17/17 21:06 06/17/17 21:07 DC 06/17/17 21:09 20 MG Heparin Sodium (Porcine) (Heparin 100 Unit/ml 5ml Flush) 5 ml STK-MED ONCE .ROUTE 06/17/17 21:15 06/17/17 21:16 DC 06/17/17 21:25 5 ML ED Course 1804: The patient was evaluated in room C8. A complete history and physical exam was performed. 1808: Ordered Zofran 4 mg IV, Morphine Sulfate 4 mg IV. 1921: Ordered Potassium Chloride 40 meq. 2099: Ordered Furosemide 20 mg/syringe 2 mL @ 4 mL/min IV, Doxycycline 100 mg PO. 2101: Upon reevaluation, the patient appeared to have improvement of his symptoms. I discussed tonight's findings with him. He verbalized agreement of the treatment plan. The patient was discharged home. Medical Decision This is a 52-year-old male who presents with left-sided flank pain and cough. Differential diagnosis includes UTI, pyelonephritis, kidney stone, hydronephrosis, strain, lower lobe pneumonia. I did perform a limited focused review of portions of the patient's old chart on the electronic medical record. The patient has had no recent pertinent visits to this hospital. I did evaluate the patient as noted above. IV access was established. I did treat the patient with IV morphine and Zofran. I did order and personally review the patient's chest x-ray as described above. He did have some congestive changes and signs of bronchitis. I did order and review the patient' s blood work as noted in the electronic medical record. He has mild hypokalemia. I did order a CT of the abdomen and pelvis. I did review the images myself as well as the radiology report as described above. There is no evidence of acute process. He does have some small pleural effusions. I did discuss the test results with the patient. I did treat patient with Lasix 20 mg IV. I also started patient on doxycycline. Urinalysis showed no signs of infection. He was discharged with a prescription for doxycycline and advised follow with his doctor. Medication Reconcilliation Current Medication List: was personally reviewed by me Blood Pressure Screening Patient's blood pressure: Elevated blood pressure Impression Primary Impression: Left flank pain Additional Impressions: Acute bronchitis Hypokalemia Pulmonary vascular congestion Scribe Attestation The scribe's documentation has been prepared under my direct and personally reviewed by me in its entirety. I confirm that the note above accurately reflects all work, treatment, procedures, and medical decision making performed by me. Departure Information Dispostion Home / Self-Care Prescriptions Doxycycline Hyclate (VIBRAMYCIN) 100 Mg Cap 100 MG PO BID for 10 Days, #19 CAP Prov: Cole Sykes M.D. 06/17/17 Referrals Titi Clemente M.D. (PCP) Forms HOME CARE DOCUMENTATION FORM, IMPORTANT VISIT INFORMATION Patient Instructions [facility] Additional Instructions You have been examined and treated today on an emergency basis only. This is not a substitute for, or an effort to provide, complete comprehensive medical care. It is impossible to recognize and treat all injuries or illnesses in a single emergency department visit. It is therefore important that you follow up closely with your physician. Call as soon as possible for an appointment. Return for worsening symptoms or if you develop fever, vomiting, chest pain, trouble breathing or any other concerning symptoms. Problem Qualifiers Additional Impressions: Acute bronchitis Bronchitis organism: unspecified organism Qualified Codes: J20.9 - Acute bronchitis, unspecified
--- NOTE | 2017-06-19 15:24 | Pharmacy Progress Note ---
ED Pharmacist Culture FollowUp Date of Service: Jun 19, 2017. Patient's cath urine is growing >100,000 CFU/mL providencia rettgeri. Pt had presented w/ c/o intermittent L sided abd pain / flank pain x [address] Sykes had evaluated the patient and dx him w/ some fluid overload as well as bronchitis and was discharged on Doxycycline x 10 days. He did not feel a UTI was present based on UA (negative nitrate, trace LE, no bacteria, 1-5 WBC). He had no fever. WBC a little low at 4.39 however no left shift noted. He does have h/o quadriplegia, neurogenic bladder and recurrent UTIs. Called Dr Dom Clemente's office today as he was to f/u soon after his ED visit. RN there stated pt did see Dr Dom Clemente today. RN stated he would notify Dr Clemente of these cx results and they would f/u if any f/u is required. No further action required from ED perspective.
== END 2017-06-17 21:21 | disposition home or self-care (01) ==
LOC: EDBD 17:55 → C.EDC 17:57
DX: R10.32 Left lower quadrant pain (principal); R10.12 Left upper quadrant pain; J20.9 Acute bronchitis, unspecified; E87.6 Hypokalemia; R09.89 Other specified symptoms and signs involving the circulatory and respiratory systems; J90 Pleural effusion, not elsewhere classified; D64.9 Anemia, unspecified; I51.7 Cardiomegaly; E78.5 Hyperlipidemia, unspecified; I11.9 Hypertensive heart disease without heart failure; G82.20 Paraplegia, unspecified; Z96.0 Presence of urogenital implants; Z90.79 Acquired absence of other genital organ(s); Z85.47 Personal history of malignant neoplasm of testis; Z79.82 Long term (current) use of aspirin; Z89.511 Acquired absence of right leg below knee; Z89.512 Acquired absence of left leg below knee

== ENCOUNTER → 2017-07-11 | Outpatient (CLI) | payer OTHER ==
[~2017-07-11] MED LIST changes: +DOXY100C2 PO
== END | disposition home or self-care (01) ==
LOC: C.LABBC 14:20
PROVIDERS: ATTEND Internal Medicine Geriatric Medicine
DX: N39.0 Urinary tract infection, site not specified (principal)

== ENCOUNTER → 2017-08-05 | Outpatient (CLI) | payer OTHER | END | disposition home or self-care (01) | LOC: C.LABBC 12:16 | PROVIDERS: ATTEND Internal Medicine Geriatric Medicine | DX: N39.0 Urinary tract infection, site not specified (principal) ==

== ENCOUNTER 2017-09-17 13:54 | Emergency (ER) | payer OTHER ==
[~2017-09-17 13:54] MED LIST changes: -METO25TA56 PO; -MIDO5TAB PO; -VLM2 PO; -ZOLP10TA6 PO
[2017-09-17 14:00] VITALS: TEMP 36.5
[2017-09-17] MEDS ORDERED: SLWMEC PO (15:30)
--- NOTE | 2017-09-17 15:50 | EMERGENCY ROOM VISIT NOTE ---
History First contact with patient: 14:16 Chief Complaint: CATHETER REPLACEMENT Stated Complaint: CATHETER TUBE PLUGGED History of Present Illness The patient is a 52 year old male who presents to the Emergency Room with complaints of a catheter malfunction. The patient has an indwelling Cloud catheter secondary to a history of testicular cancer and surgery. He reports frequent problems with the catheter becoming plugged. This morning, he states that he drained a small amount of urine but feels like the catheter became plugged. He reports a pressure sensation in his abdomen, but denies pain. He has seen a specialist regarding this and is being scheduled for a suprapubic catheter to prevent these issues. He denies any fevers or back pain. Review of Systems A complete 10 point review of systems was reviewed with the patient with pertinent positives and negatives as per history of present illness. All else were negative. Past Medical/Surgical History Medical Problems: (1) Anemia (2) Cardiomegaly (3) Esophageal Reflux (4) Gangrene (5) Hyperlipidemia Nec/Nos (6) Hypertension Nos (7) metastatic testicular cancer (8) Osteomyelitis (9) Paraplegia (10) Pyelonephritis Nos (11) Testicular cancer (12) UTI (urinary tract infection) Surgical Problems: (1) left inguinal radical orchiectomy Family History No pertinent family history Social History Smoking Status: Never Smoker Alcohol Use: none Drug Use: none Marital Status: single Housing Status: lives with family Occupation Status: disabled Current/Historical Medications Scheduled Aspirin (Aspirin 81), 1 TAB PO DAILY Diazepam (Diazepam), 1.5 TAB PO DAILY Famotidine (Acid Controller Maximum S), 1 TAB PO BID Magnesium Chloride (Slow-Mag Tab), 138 MG PO DAILY Metoprolol Tartrate (Lopressor) (Lopressor), 25 MG PO DAILY Midodrine Hcl (Midodrine Hcl), 5 MG PO TID Multivitamin (Multivitamin), 1 TAB PO DAILY Polyethylene Glycol 3350 (Bulk (Polyethylene Glycol 3350), 17 GM PO DAILY Zolpidem Tartrate (Zolpidem Tartrate), 10 MG PO HS Physical Exam Vital Signs Date Time Temp Pulse Resp B/P (MAP) Pulse Ox O2 Delivery O2 Flow Rate FiO2 09/17/17 16:19 57 90/62 98 09/17/17 14:00 36.5 94 18 106/63 94 Room Air Physical Exam VITALS: Vitals are noted on the nurse's note and reviewed by myself. Vital signs stable. GENERAL: This is a 52-year-old male, in no acute distress, nondiaphoretic, well- developed well-nourished. SKIN: The skin was without rashes. MOUTH: Mucous membranes moist. HEART: Regular rate and rhythm without murmurs gallops or rubs. LUNGS: Clear to auscultation bilaterally without wheezes, rales or rhonchi. ABDOMEN: Positive bowel sounds x 4. Soft, nondistended, nontender to palpation. GENITALS: Catheter in place. NEURO: Patient was alert and oriented to person place and time. Medical Decision & Procedures Laboratory Results Test 09/17/17 14:55 Urine Color YELLOW Urine Appearance CLOUDY (CLEAR) Urine pH 5.5 (4.5-7.5) Urine Specific [place] 1.013 (1.000-1.030) Urine Protein NEG (NEG) Urine Glucose (UA) NEG (NEG) Urine Ketones NEG (NEG) Urine Occult Blood 2+ (NEG) Urine Nitrite NEG (NEG) Urine Bilirubin NEG (NEG) Urine Urobilinogen NEG (NEG) Urine Leukocyte Esterase LARGE (NEG) Urine WBC (Auto) >30 /hpf (0-5) Urine RBC (Auto) 10-30 /hpf (0-4) Urine Hyaline Casts (Auto) 1-5 /lpf (0-5) Urine Epithelial Cells (Auto) 5-10 /lpf (0-5) Urine Bacteria (Auto) NEG (NEG) Urine Pathogenic Casts /lpf (0) Medical Decision Differential diagnosis includes catheter malfunction, UTI, pyelonephritis, kidney stone, among others. The patient was evaluated as above. His catheter was removed and a new Cloud catheter was placed. This was draining well. Urinalysis was obtained and is not suggestive of infection. Culture was sent. Patient was advised to follow- up with his PCP and urologist. He verbalized understanding of my assessment and treatment plan was discharged home in good condition. The patient was independently evaluated by Dr. Muñiz, ED attending physician, who agreed with my assessment and treatment plan. Medication Reconcilliation Current Medication List: was personally reviewed by me Blood Pressure Screening Patient's blood pressure: Normal blood pressure Impression Primary Impression: Complication of catheter Departure Information Dispostion Home / Self-Care Condition GOOD Referrals Titi Clemente M.D. (PCP) Patient Instructions [facility] Additional Instructions Follow-up with your specialist as scheduled. Problem Qualifiers Primary Impression: Complication of catheter Encounter type: initial encounter Qualified Codes: T85.9XXA - Unspecified complication of internal prosthetic device, implant and graft, initial encounter
--- NOTE | 2017-09-17 16:07 | EMERGENCY ROOM VISIT NOTE ---
ED Visit Note First contact with patient: 14:16 The patient was seen and examined with Nadiya Luther PA-C. I agree with the history, physical and findings. Please see the note for disposition and details.
[2017-09-17 16:19] VITALS: BP 90/62; PULSE 57; O2SAT 98
[2017-09-17] MEDS ORDERED: MIDO5TAB PO (17:24)
[2017-09-17] MEDS ORDERED: METO25TA56 PO (17:24)
[2017-09-17] MEDS ORDERED: VLM2 PO (17:25)
[2017-09-17] MEDS ORDERED: ZOLP10TA6 PO (17:36)
== END 2017-09-17 16:20 | disposition home or self-care (01) ==
LOC: C.EDB 13:55 → C.EDC 16:20
DX: T85.9XXA Unspecified complication of internal prosthetic device, implant and graft, initial encounter (principal); Y84.6 Urinary catheterization as the cause of abnormal reaction of the patient, or of later complication, without mention of misadventure at the time of the procedure; I10 Essential (primary) hypertension; G82.20 Paraplegia, unspecified; Z85.47 Personal history of malignant neoplasm of testis; Z87.440 Personal history of urinary (tract) infections; Z90.79 Acquired absence of other genital organ(s); Z79.82 Long term (current) use of aspirin; Z79.899 Other long term (current) drug therapy

== ENCOUNTER 2017-12-20 08:12 | Emergency (ER) | payer OTHER ==
[~2017-12-20 08:12] MED LIST changes: -AMOX875T PO; -DOXY100C2 PO; -MAGN64TA4 PO; +METO25TA56 PO; +MIDO5TAB PO; +SLWMEC PO; -SULF800T23 PO; +VLM2 PO; +ZOLP10TA6 PO
[2017-12-20 08:21] VITALS: TEMP 37.7
[2017-12-20] MEDS ORDERED: VITAMIN B-12 PO (08:51)
[2017-12-20] MEDS ORDERED: VITAMIN C PO (08:51)
[2017-12-20] MEDS ORDERED: ONDANSETRON INJ 2 MG/ML 2 ML VIAL IV STA (08:53)
[2017-12-20] MEDS ORDERED: SODIUM CHLORIDE 0.9% 1000ML 1,000 ML IV STA (08:53)
[2017-12-20] MEDS ORDERED: CEFTRIAXONE SOD INJ 1 GM ADDVIAL IV STA (08:55)
[2017-12-20 09:49] LABS: BASO % 0.3 %; BASO ABS # 0.03 K/uL (0-0.2); EOS % 0.4 %; EOS ABS # 0.04 K/uL (0-0.5); HEMOGLOBIN 11.4 g/dL (14.0-18.0); IG# 0.03 K/uL (0.00-0.02); LYMPH % 8.6 %; LYMPH ABS # 0.97 K/uL (1.2-3.4); MEAN CELL VOLUME 71.3 fL (80-100); MEAN CORPUSCULAR HEMOGLOBIN 23.9 pg (25-34); MEAN CORPUSCULAR HGB CONC 33.5 g/dl (32-36); MONO % 7.9 %; MONO ABS # 0.89 K/uL (0.11-0.59); NEUT % 82.5 %; NEUT ABS # 9.32 K/uL (1.4-6.5); PLATELET COUNT 536 K/uL (130-400); RED CELL DISTRIBUTION WIDTH CV 16.1 % (11.5-14.5); RED CELL DISTRIBUTION WIDTH SD 42.4 fL (36.4-46.3); WHITE BLOOD COUNT 11.28 K/uL (4.8-10.8)
[2017-12-20 10:06] LABS: ALBUMIN 2.4 gm/dl (3.4-5.0); ALKALINE PHOSPHATASE 91 U/L (45-117); ALT/SGPT 10 U/L (12-78); AST/SGOT 12 U/L (15-37); BLOOD UREA NITROGEN 9 mg/dl (7-18); CALCIUM 9.1 mg/dl (8.5-10.1); CARBON DIOXIDE 25 mmol/L (21-32); CREATININE 0.76 mg/dl (0.60-1.40); GLUCOSE 96 mg/dl (70-99); LIPASE 66 U/L (73-393); SODIUM 134 mmol/L (136-145); TOTAL PROTEIN 8.6 gm/dl (6.4-8.2)
--- NOTE | 2017-12-20 10:56 | DIAGNOSTIC IMAGING REPORT ---
ABDOMEN 2VIEW W/PA CHEST RTN CLINICAL HISTORY: Abdominal pain COMPARISON STUDY: 06/17/2017 FINDINGS: The heart is normal in size. There is a left subclavian A-Port catheter. There is no focal pulmonary consolidation. There is no free intraperitoneal air. Supine and decubitus views the abdomen reveal surgical clips within the right upper quadrant consistent with a prior cholecystectomy. There is an aortoiliac stent graft. There are no abnormally dilated loops of large or small bowel. There is no free intraperitoneal air. There aren't dysmorphic hips and pelvis. IMPRESSION: No evidence of bowel obstruction. No evidence of free air. Electronically signed by: Jerardo Eller M.D. 12/20/2017 10:54 AM Dictated Date/Time: 12/20/2017 10:52 AM
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
[2017-12-20 12:20] VITALS: BP 113/75; PULSE 83; O2SAT 96
== END 2017-12-20 12:20 | disposition home or self-care (01) ==
LOC: EDBD 08:12 → C.EDB 08:16
DX: R14.2 Eructation (principal); R01.1 Cardiac murmur, unspecified; S31.000A Unspecified open wound of lower back and pelvis without penetration into retroperitoneum, initial encounter; X58.XXXA Exposure to other specified factors, initial encounter; G82.20 Paraplegia, unspecified; Z89.611 Acquired absence of right leg above knee; Z89.612 Acquired absence of left leg above knee; Z96.0 Presence of urogenital implants; Z79.82 Long term (current) use of aspirin; Z87.19 Personal history of other diseases of the digestive system

== ENCOUNTER 2018-01-04 19:37 | Emergency (ER) | payer OTHER ==
[~2018-01-04 19:37] MED LIST changes: +VITAMIN B-12 PO; +VITAMIN C PO
[2018-01-04 19:39] VITALS: TEMP 37
[2018-01-04 19:57] VITALS: O2SAT 96
[2018-01-04 20:46] LABS: BASO % 0.3 %; BASO ABS # 0.02 K/uL (0-0.2); EOS % 2.2 %; EOS ABS # 0.17 K/uL (0-0.5); HEMATOCRIT 29.3 % (42-52); HEMOGLOBIN 9.5 g/dL (14.0-18.0); IG# 0.02 K/uL (0.00-0.02); LYMPH % 16.2 %; LYMPH ABS # 1.26 K/uL (1.2-3.4); MEAN CELL VOLUME 70.6 fL (80-100); MEAN CORPUSCULAR HEMOGLOBIN 22.9 pg (25-34); MEAN CORPUSCULAR HGB CONC 32.4 g/dl (32-36); MEAN PLATELET VOLUME 8.4 fL (7.4-10.4); MONO % 10.3 %; NEUT % 70.7 %; PLATELET COUNT 429 K/uL (130-400); RED CELL DISTRIBUTION WIDTH SD 44.1 fL (36.4-46.3); WHITE BLOOD COUNT 7.77 K/uL (4.8-10.8)
[2018-01-04 21:01] LABS: INR 1.1 (0.9-1.1); PTT PATIENT 32.4 SECONDS (21.0-31.0)
[2018-01-04 21:02] LABS: ALBUMIN 1.8 gm/dl (3.4-5.0); ALKALINE PHOSPHATASE 71 U/L (45-117); ALT/SGPT 8 U/L (12-78); AST/SGOT 10 U/L (15-37); BLOOD UREA NITROGEN 10 mg/dl (7-18); CALCIUM 8.2 mg/dl (8.5-10.1); CARBON DIOXIDE 26 mmol/L (21-32); CREATININE 0.47 mg/dl (0.60-1.40); GLUCOSE 77 mg/dl (70-99); POTASSIUM 3.5 mmol/L (3.5-5.1); SODIUM 138 mmol/L (136-145); TOTAL PROTEIN 6.7 gm/dl (6.4-8.2)
[2018-01-04 21:22] VITALS: BP 100/67; PULSE 66; O2SAT 98
[2018-01-04] MEDS ORDERED: CYAN10005 PO (21:37)
[2018-01-04] MEDS ORDERED: GABA-112 PO (21:37)
[2018-01-04] MEDS ORDERED: NITR-5 PO (21:37)
[2018-01-04] MEDS ORDERED: NITROFURANTOIN MONOHYDRATE 100 MG CAP PO ONE (21:45)
[2018-01-04] MEDS ORDERED: FLUCONAZOLE 50 MG TAB PO ONE (21:45)
[2018-01-04] MEDS ORDERED: ASCO10003 PO (22:00)
--- NOTE | 2018-01-04 22:58 | EMERGENCY ROOM VISIT NOTE ---
History Report prepared by Juan: Farnaz Bustos Under the Supervision of: Dr. Cole Sykes M.D. First contact with patient: 19:46 Chief Complaint: FEVER Stated Complaint: Fever/UTI History of Present Illness The patient is a 52 year old male who presents to the Emergency Room with complaints of a fever that started today. The patient also states that he had a fever of 100.1 earlier today and was instructed to take Tylenol and drink water. He notes that after he did so, his temperature dropped to 99. The patient also reports that he was draining his catheter this morning when he noticed that his urine smelled foul. He states that he has had a catheter for 15 years and that he thinks he currently has a bladder infection. The patient reports that he was on Bactrim to weeks ago but currently does not take any related medication. He notes that he has had amputation of his legs. He denies any cough or cold symptoms. He is not vomiting. Source of History: patient Onset: this morning Position: other (generalized) Symptom Intensity: 100.1 Quality: other (fever) Timing: other (sudden) Modifying Factors (Relieving): drinking (water), tylenol Associated Symptoms: + urinary symptoms (fowl smelling urine), No cough, No vomiting Review of Systems See HPI for pertinent positives & negatives. A total of 10 systems reviewed and were otherwise negative. Past Medical & Surgical Medical Problems: (1) Anemia (2) Cardiomegaly (3) Esophageal Reflux (4) Gangrene (5) Hyperlipidemia Nec/Nos (6) Hypertension Nos (7) metastatic testicular cancer (8) Osteomyelitis (9) Paraplegia (10) Pyelonephritis Nos (11) Testicular cancer (12) UTI (urinary tract infection) Surgical Problems: (1) left inguinal radical orchiectomy Family History FHx: cancer FHx: diabetes mellitus Social History Smoking Status: Never Smoker Alcohol Use: none Drug Use: none Marital Status: single Housing Status: lives with family Occupation Status: disabled Current/Historical Medications Scheduled Ascorbic Acid (Vitamin C), 1,000 MG PO DAILY Aspirin (Aspirin 81), 1 TAB PO QAM Cyanocobalamin (Vitamin B-12), 1,000 MCG PO DAILY Diazepam (Diazepam), 1.5 TAB PO HS Famotidine (Acid Controller Maximum S), 1 TAB PO BID Magnesium Chloride (Slow-Mag Tab), 138 MG PO QAM Metoprolol Tartrate (Lopressor) (Lopressor), 25 MG PO QAM Midodrine Hcl (Midodrine Hcl), 5 MG PO TID Multivitamin (Multivitamin), 1 TAB PO QAM Nitrofurantoin Monohyd Macrocr (Macrobid), 100 MG PO BID Polyethylene Glycol 3350 (Bulk (Polyethylene Glycol 3350), 17 GM PO QAM Allergies Coded Allergies: No Known Allergies (Verified , 12/20/17) Physical Exam Vital Signs Date Time Temp Pulse Resp B/P (MAP) Pulse Ox O2 Delivery O2 Flow Rate FiO2 01/04/18 21:22 66 20 100/67 98 01/04/18 19:57 96 Room Air 01/04/18 19:39 37.0 71 20 100/67 98 Room Air Physical Exam Constitutional: Vital signs reviewed. Eyes: Pupils are equal round reactive to light. Conjunctiva are noninjected. ENT: Pharynx is clear without erythema or exudate. Mucous membranes are moist. Neck supple without meningeal signs. Respiratory: Clear to auscultation bilaterally. Breath sounds are equal bilaterally. Cardiovascular: Regular rate and rhythm. No rubs or gallops. GI: Soft, nondistended and nontender. Bowel sounds are present. Healing wound right groin. : Indwelling Cloud catheter draining clear yellow urine. Musculoskeletal: Bilateral AKA. Integumentary: No cyanosis. Neurological: The patient is awake and alert. No focal deficits. Psychiatric: Normal affect. Medical Decision & Procedures Laboratory Results 01/04/18 20:30 Red Blood Count 4.15, Mean Corpuscular Volume 70.6, Mean Corpuscular Hemoglobin 22.9, Mean Corpuscular Hemoglobin Concent 32.4, Mean Platelet Volume 8.4, Neutrophils (%) (Auto) 70.7, Lymphocytes (%) (Auto) 16.2, Monocytes (%) (Auto) 10.3, Eosinophils (%) (Auto) 2.2, Basophils (%) (Auto) 0.3, Neutrophils # (Auto ) 5.50, Lymphocytes # (Auto) 1.26, Monocytes # (Auto) 0.80, Eosinophils # (Auto ) 0.17, Basophils # (Auto) 0.02 01/04/18 20:30 Test 01/04/18 19:50 01/04/18 20:30 01/04/18 20:36 Urine Color YELLOW Urine Appearance CLOUDY (CLEAR) Urine pH 7.5 (4.5-7.5) Urine Specific Michael 1.010 (1.000-1.030) Urine Protein NEG (NEG) Urine Glucose (UA) NEG (NEG) Urine Ketones NEG (NEG) Urine Occult Blood TRACE (NEG) Urine Nitrite POS (NEG) Urine Bilirubin NEG (NEG) Urine Urobilinogen NEG (NEG) Urine Leukocyte Esterase LARGE (NEG) Urine WBC (Auto) >30 /hpf (0-5) Urine RBC (Auto) 5-10 /hpf (0-4) Urine Hyaline Casts (Auto) 1-5 /lpf (0-5) Urine Epithelial Cells (Auto) 10-20 /lpf (0-5) Urine Bacteria (Auto) 4+ (NEG) Urine Yeast (Auto) BUDDING (NONE PRSENT) White Blood Count 7.77 K/uL (4.8-10.8) Red Blood Count 4.15 M/uL (4.7-6.1) Hemoglobin 9.5 g/dL (14.0-18.0) Hematocrit 29.3 % (42-52) Mean Corpuscular Volume 70.6 fL (80-100) Mean Corpuscular Hemoglobin 22.9 pg (25-34) Mean Corpuscular Hemoglobin Concent 32.4 g/dl (32-36) Platelet Count 429 K/uL (130-400) Mean Platelet Volume 8.4 fL (7.4-10.4) Neutrophils (%) (Auto) 70.7 % Lymphocytes (%) (Auto) 16.2 % Monocytes (%) (Auto) 10.3 % Eosinophils (%) (Auto) 2.2 % Basophils (%) (Auto) 0.3 % Neutrophils # (Auto) 5.50 K/uL (1.4-6.5) Lymphocytes # (Auto) 1.26 K/uL (1.2-3.4) Monocytes # (Auto) 0.80 K/uL (0.11-0.59) Eosinophils # (Auto) 0.17 K/uL (0-0.5) Basophils # (Auto) 0.02 K/uL (0-0.2) RDW Standard Deviation 44.1 fL (36.4-46.3) RDW Coefficient of Variation 17.0 % (11.5-14.5) Immature Granulocyte % (Auto) 0.3 % Immature Granulocyte # (Auto) 0.02 K/uL (0.00-0.02) Prothrombin Time 11.8 SECONDS (9.0-12.0) Prothromb Time International Ratio 1.1 (0.9-1.1) Activated Partial Thromboplast Time 32.4 SECONDS (21.0-31.0) Partial Thromboplastin Ratio 1.2 Anion Gap 7.0 mmol/L (3-11) Estimated GFR () > 150.0 Estimated GFR (Non- 129.6 BUN/Creatinine Ratio 20.3 (10-20) Calcium Level 8.2 mg/dl (8.5-10.1) Total Bilirubin 0.2 mg/dl (0.2-1) Aspartate Amino Transf (AST/SGOT) 10 U/L (15-37) Alanine Aminotransferase (ALT/SGPT) 8 U/L (12-78) Alkaline Phosphatase 71 U/L (45-117) Total Protein 6.7 gm/dl (6.4-8.2) Albumin 1.8 gm/dl (3.4-5.0) Globulin 4.9 gm/dl (2.5-4.0) Albumin/Globulin Ratio 0.4 (0.9-2) Bedside Lactic Acid Venous 0.68 mmol/L (0.90-1.70) Laboratory results as reviewed by me. Medications Administered Medications (Trade) Dose Ordered Sig/Zach Route Start Time Stop Time Status Last Admin Dose Admin Nitrofurantoin Macrocrystals (Macrobid Cap) 100 mg ONE ONCE PO 01/04/18 21:45 01/04/18 21:46 DC 01/04/18 21:45 100 MG Fluconazole (Diflucan Tab) 150 mg NOW ONCE PO 01/04/18 21:45 01/04/18 21:46 DC 01/04/18 21:45 150 MG Heparin Sodium (Porcine) (Heparin 100 Unit/ml 5ml Flush) 5 ml STK-MED ONCE .ROUTE 01/04/18 21:59 01/04/18 22:00 DC 01/04/18 21:59 5 ML ED Course 1950: The patient was evaluated in room A11B. A complete history and physical exam was performed. 2134: Upon reevaluation, the patient appeared to have improvement of his symptoms. I discussed danielle's findings with him and his family. The patient verbalized agreement of the treatment plan. The patient was discharged home. 2144: Administered Macrobid Cap 100 mg PO. Medical Decision This is a 52-year-old male presents with fever. Differential diagnosis includes catheter associated UTI, pyelonephritis, bacteremia, sepsis, viral syndrome. I did perform a limited focused review of portions of the patient's old chart on the electronic medical record. The patient was seen at the facility on December 20, 2017 for burping. Her workup showed anemia. The patient was on Bactrim based on a urine culture from a chronic indwelling Cloud catheter. The patient has a chronic open wound in the lumbar region. I did evaluate the patient as noted above. IV access was established. I did order and personally review the patient's urine analysis as described above. He does have an infection. A urine culture was sent. I did treat him with Macrobid based on his prior culture. He had MRSA in his urine which was resistant to Bactrim but susceptible to Macrobid. He was also given Diflucan as there was some budding yeast in his urine. I did order and review the patient's blood work as noted in the electronic medical record. His lactic acid and white blood cell count are not elevated. He is anemic. His hemoglobin is slightly lower than it previously was. I did discuss the test results with the patient and his family. He did feel well enough to go home. He is not septic appearing or severely ill at this time. I did recommend close follow-up with his doctor and to return for any worsening symptoms. His blood pressure is normally slightly low. It is 100/67 here. He was discharged with a prescription for Macrobid. Medication Reconcilliation Current Medication List: was personally reviewed by me Blood Pressure Screening Patient's blood pressure: Normal blood pressure Impression Primary Impression: Catheter-associated urinary tract infection Additional Impression: Anemia Scribe Attestation The scribe's documentation has been prepared under my direct and personally reviewed by me in its entirety. I confirm that the note above accurately reflects all work, treatment, procedures, and medical decision making performed by me. Departure Information Dispostion Home / Self-Care Prescriptions Nitrofurantoin Monohyd Macrocr (Macrobid) 100 Mg Cap 100 MG PO BID, #14 CAP Prov: Cole Sykes M.D. 01/04/18 Referrals Titi Clemente M.D. (PCP) Forms HOME CARE DOCUMENTATION FORM, IMPORTANT VISIT INFORMATION Patient Instructions My [facility] Additional Instructions You have been examined and treated today on an emergency basis only. This is not a substitute for, or an effort to provide, complete comprehensive medical care. It is impossible to recognize and treat all injuries or illnesses in a single emergency department visit. It is therefore important that you follow up closely with your physician. Call as soon as possible for an appointment. Return for worsening symptoms or if you develop persistent fever, vomiting, lightheadedness or any other concerning symptoms. Problem Qualifiers Primary Impression: Catheter-associated urinary tract infection Indwelling urinary catheter type: indwelling urethral catheter Encounter type : initial encounter Qualified Codes: T83.511A - Infection and inflammatory reaction due to indwelling urethral catheter, initial encounter; N39.0 - Urinary tract infection, site not specified Additional Impression: Anemia Anemia type: unspecified type Qualified Codes: D64.9 - Anemia, unspecified
--- NOTE | 2018-01-06 17:55 | Pharmacy Progress Note ---
ED Pharmacist Culture FollowUp Date of Service: Jan 06, 2018. Urine cx is growing 2 organisms (cath specimen): e coli and ps aeruginoa Pt was dx with UTI and discharge on Macrobid 100mg PO BID x 7 days. Macrobid will cover the e coli growing in the urine cx. There are no PO ABX to cover the ps aeruginosa in this cx. 1 of 2 BLCXs is growing GPC, no ID provided by lab at this time. Contacted pt via phone to determine how he is doing clinically per request of Dr Louis. Pt states he is no longer febrile, denied chills and states his urine is looking and smelling better. He feels the abx are effective. Reviewed case w/ Dr Schmitt today. Plan is to continue Macrobid at this time as ps aeruginosa may or may not be a colonizing organism and pt states he is improving clinically. Await ID of GPC in blood cx to determine further action. No action required at this time.
--- NOTE | 2018-01-09 12:59 | Pharmacy Progress Note ---
ED Pharmacist Culture FollowUp Date of Service: Jan 09, 2018. 1 of 2 sets of blood cx's from 01/04 is growing gram positive cocci still not ID' d by lab. I did speak with Nakita in [facility] today and although final ID is still pending the organism in cx is resembling Micrococcus (which is a likely contaminant). No action required at this time. Jan 06, 2018 review of culture results and ED visit note: Urine cx is growing 2 organisms (cath specimen): e coli and ps aeruginoa Pt was dx with UTI and discharge on Macrobid 100mg PO BID x 7 days. Macrobid will cover the e coli growing in the urine cx. There are no PO ABX to cover the ps aeruginosa in this cx. 1 of 2 BLCXs is growing GPC, no ID provided by lab at this time. Contacted pt via phone to determine how he is doing clinically per request of Dr Louis. Pt states he is no longer febrile, denied chills and states his urine is looking and smelling better. He feels the abx are effective. Reviewed case w/ Dr Schmitt today. Plan is to continue Macrobid at this time as ps aeruginosa may or may not be a colonizing organism and pt states he is improving clinically. Await ID of GPC in blood cx to determine further action. No action required at this time.
== END 2018-01-04 22:15 | disposition home or self-care (01) ==
LOC: EDBD 19:37 → C.EDA 19:38
DX: T83.511A Infection and inflammatory reaction due to indwelling urethral catheter, initial encounter (principal); Y84.6 Urinary catheterization as the cause of abnormal reaction of the patient, or of later complication, without mention of misadventure at the time of the procedure; D64.9 Anemia, unspecified; S31.000D Unspecified open wound of lower back and pelvis without penetration into retroperitoneum, subsequent encounter; X58.XXXD Exposure to other specified factors, subsequent encounter; Z89.611 Acquired absence of right leg above knee; Z89.612 Acquired absence of left leg above knee; K21.9 Gastro-esophageal reflux disease without esophagitis; E78.5 Hyperlipidemia, unspecified; I10 Essential (primary) hypertension; G82.20 Paraplegia, unspecified; Z85.47 Personal history of malignant neoplasm of testis; Z90.79 Acquired absence of other genital organ(s); Z87.440 Personal history of urinary (tract) infections; Z80.9 Family history of malignant neoplasm, unspecified; Z83.3 Family history of diabetes mellitus; Z79.82 Long term (current) use of aspirin; Z79.899 Other long term (current) drug therapy

== ENCOUNTER 2018-09-08 21:41 | Inpatient (IN) ==
[2018-09-08] MEDS ORDERED: MoRPHine SULFATE 4 MG/ML 1 ML CARP\\VIAL IV STA (22:57)
[2018-09-08] MEDS ORDERED: ONDANSETRON INJ 2 MG/ML 2 ML VIAL IV STA (22:57)
[2018-09-08 23:45] LABS: Basophils # (auto) 0.02 K/uL (0-0.2); Basophils % (auto) 0.4 %; Eosinophils # (auto) 0.32 K/uL (0-0.5); Eosinophils % (auto) 6.9 %; Hematocrit (blood only) 30.6 % (42-52); Hemoglobin 10.2 g/dL (14.0-18.0); Immature Granulocytes # (auto) 0.01 K/uL (0.00-0.02); Immature Granulocytes % (auto) 0.2 %; Lymphocytes # (auto) 1.31 K/uL (1.2-3.4); Lymphocytes % (auto) 28.3 %; Mean Corpuscular Hgb Conc 33.3 g/dL (32-36); Mean Corpuscular Volume 71.5 fL (80-100); Mean Platelet Volume 9.2 fL (7.4-10.4); Monocytes # (auto) 0.52 K/uL (0.11-0.59); Monocytes % (auto) 11.2 %; Neutrophils # (auto) 2.45 K/uL (1.4-6.5); Platelet Count 346 K/uL (130-400); RDW Standard Deviation 57.2 fL (36.4-46.3); Red Blood Count 4.28 M/uL (4.7-6.1); White Blood Count 4.63 K/uL (4.8-10.8)
[2018-09-08] MEDS: SODIUM CHLORIDE 0.9% 1000ML 1,000 ML IV SCH (23:54)
[2018-09-09 00:02] LABS: Albumin Level 1.9 gm/dl (3.4-5.0); BUN Creatinine Ratio 11.9 (10-20); Creatinine Clr Calc Pharmacy 123.6 ml/min; Est GFR (African American) 145.4; Est GFR (Non-African American) 125.5; Magnesium 1.4 mg/dl (1.8-2.4); Potassium 2.8 mmol/L (3.5-5.1)
[2018-09-09 00:13] LABS: Albumin Globulin Ratio 0.5 (0.9-2); Bilirubin,Total 0.3 mg/dl (0.2-1); Globulin 4.2 gm/dl (2.5-4.0); Total Protein 6.1 gm/dl (6.4-8.2); Troponin I 0.051 ng/ml (0-0.045)
[2018-09-09] MEDS ORDERED: POTASSIUM CHLORIDE / WTR 10 MEQ/100 ML PLCT IV ONE (00:16)
[2018-09-09 00:20] LABS: Appearance Urine Cloudy (Clear); Bacteria Urine Automated Negative (Negative); Bilirubin Urine Negative (Negative); Blood Urine Negative (Negative); Color Urine Yellow; Epithelial Cell Urine Auto 20-30 /lpf (0-5); Glucose Urine UA Negative (Negative); Ketones Urine Negative (Negative); Leukocyte Esterase Urine 3+ (Negative); Nitrite Urine Negative (Negative); Protein Urine Negative (Negative); Specific Gravity Urine 1.016 (1.000-1.030); Urobilinogen Urine Negative (Negative); WBC Urine Automated >30 /hpf (0-5)
[2018-09-09 00:27] LABS: Anisocytosis Present; Hypochromasia Present; Microcytosis Present
[2018-09-09] MEDS: MAGNESIUM SULFATE / D5W 1 GM/100 ML BAG IV SCH ×2 (00:36→01:40)
[2018-09-09 00:38] LABS: Calcium Oxalate Crystals Urine Present (None Prsent); RBC Urine Automated 0-4 /hpf (0-4)
[2018-09-09] MEDS ORDERED: IOVERSOL 100ml IV PRN (00:40)
[2018-09-09] MEDS ORDERED: SODIUM CHLORIDE 0.9% 1000ML 500 ML IV ONE (01:38)
[2018-09-09] MEDS ORDERED: SODIUM CHLORIDE 0.9% 500 ML IV SCH (01:45)
--- NOTE | 2018-09-09 03:01 | Emergency Department Note ---
History of Present Illness General Chief complaint: Illness Stated complaint: VOMITING, NAUSEA Time Seen by Provider: 09/08/18 22:33 History of Present Illness Maximum Pain Intensity: 0 This 53-year-old presents to the ER complaining of nausea, vomiting and weakness Location: Abdomen Quality: Nauseous Severity: Moderate Duration: Past week Timing: Symptoms started over a week ago Context: Symptoms got worse and patient came in Modifying factors: better with nothing; worse with drinking Patient is on chronic antibiotics for osteomyelitis of the lumbar vertebrae who has a pressure injury at the sacral region who is a quadriplegic and [id number] amputee bilaterally. Patient's recently was treated for debridement abscesses to his lumbar region earlier this year. He currently has a large wound in his lumbar region that extends to the bone and to the metal rafael. This is unchanged. He states overall this is healing nicely. Patient states he mainly comes in for the nausea and vomiting and upset stomach. Patient denies fevers, cough, congestion, flulike illness. Patient states he does not feel septic from his back infection. Home Medications Home Medications Medication Instructions Recorded Confirmed Type aspirin [Aspirin Low Dose] 81 mg PO DAILY 03/13/18 09/08/18 History famotidine [Pepcid] 20 mg PO BID 03/13/18 09/08/18 History magnesium chloride [Slow-Mag] 143 mg PO DAILY 03/13/18 09/08/18 History metoprolol tartrate 25 mg PO DAILY PRN 03/13/18 09/08/18 History polyethylene glycol 3350 [Miralax] 17 g PO DAILY PRN 03/13/18 09/08/18 History ferrous sulfate 325 mg PO BID 08/09/18 09/08/18 History fluconazole 200 mg PO BID 08/09/18 09/08/18 History gabapentin 300 mg PO TID 08/09/18 09/08/18 History midodrine 5 mg PO TID 08/09/18 09/08/18 History oxycodone 5 mg PO Q8H PRN 08/09/18 09/08/18 History tizanidine 2 mg PO Q8H PRN 08/09/18 09/08/18 History acetaminophen [Tylenol] 650 mg PO Q6H PRN 09/08/18 09/08/18 History ciprofloxacin HCl [Cipro] 500 mg PO Q12 09/08/18 09/08/18 History clindamycin HCl [Cleocin HCl] 300 mg PO QID 09/08/18 09/08/18 History sodium hypochlorite [Dakin's 1 applic TOPICAL Q8 09/08/18 09/08/18 History Solution] Lactobacillus acidophilus 1 tab PO BID 09/09/18 09/09/18 History [Probiotic] Allergies Allergy/AdvReac Type Severity Reaction Status Date / Time No Known Allergies Allergy Verified 09/08/18 23:14 Past Med/Surg History Medical History Anemia (Chronic) Paraplegia (Chronic) Testicular cancer (Resolved) Osteomyelitis (Chronic) Cardiomegaly (Chronic) Paraplegia (Chronic) Postural headache (Resolved) Sepsis (Resolved) Surgical History History of cholecystectomy (Resolved) Social History Preferred Language: Maltese Communication Ability: Effective Current Living Situation: Family Feels Safe at Home: Yes Smoking Status: Never smoker Review of Systems All systems reviewed & are unremarkable except as noted in HPI & below Physical Exam Vital Signs Vital Signs - 24 hr 09/08/18 21:48 09/08/18 23:30 09/09/18 01:23 Temperature 36.9 C Temperature Source Oral Sepsis Recent Fever Within 48 Hours No Sepsis New/Unexplained Change in Mental Status No Sepsis Action Taken by Nursing No Action Required Pulse Rate 60 Pulse Rate [Right Finger] 58 L 54 L Pulse Rhythm [Right Finger] Regular Regular Pulse Strength [Right Finger] Normal Normal Respiratory Rate 16 14 20 Respiratory Effort / Characteristics Non-Labored Spontaneous Non-Labored Spontaneous Respiratory Depth Normal Normal Respiratory Pattern Regular Regular Blood Pressure 147/64 H Blood Pressure [Right Arm] 111/71 92/54 L Blood Pressure Mean 91 Blood Pressure Mean [Right Arm] 84 66 Pulse Oximetry 100 98 94 Oxygen Delivery Method Room Air Room Air Room Air VITALS: Vitals are noted on the nurse's note and reviewed by myself. Vital signs reviewed GENERAL: White male chronically ill-appearing, in no acute distress, nondiaphoretic, well-developed well-nourished. SKIN: Lumbar region with a large open wound 6 x 9 cm with granulation tissue present, no purulent discharge, no surrounding cellulitis. The rest of the skin was without rashes, erythema, edema, or bruising. There is no tenting of the skin. Capillary reflex less than 2 seconds. HEAD: Normocephalic atraumatic. EARS: External auditory canals clear, tympanic membranes pearly leal without erythema or effusion bilaterally. EYES: Pupils equal round and reactive to light and accommodation. Conjunctivae without injection, sclerae without icterus. Extraocular movements intact. NOSE: Patent, turbinates without inflammation or discharge. MOUTH: Mucous membranes moist. Pharynx without erythema or exudate. Uvula midline. Airway patent. Tongue does not deviate. NECK: Supple without nuchal rigidity. No lymphadenopathy. No thyromegaly. Cervical spine is nontender. No JVD. HEART: Regular rate and rhythm LUNGS: Clear to auscultation bilaterally without wheezes, rales or rhonchi. No retractions or accessory muscle use. ABDOMEN: Positive bowel sounds x 4. Normal tympanic percussion. Soft, nontender, without masses or organomegaly. Salas sign negative. No guarding or rebound tenderness. No CVA tenderness exam: No perineal infection, groin without signs of infection. Nurse present. MUSCULOSKELETAL: No muscle atrophy, erythema, or edema noted. Bilateral [id number] amputee. NEURO: Patient was alert and oriented to person place and time. Normal sensation to light and sharp touch. No focal neurological deficits. Course Administered Medications Sodium Chloride (Nss 1000ml) 1,000 mls @ 80 mls/hr IV .[id number] [facility] Stop: 10/08/18 22:59 Last Admin: 09/08/18 23:54 Dose: 80 mls/hr Documented by: [id number] Sodium Chloride (Nss) 500 mls @ 125 mls/hr IV .Q4H [facility] Stop: 10/09/18 01:44 Last Admin: 09/09/18 01:41 Dose: 125 mls/hr Documented by: [id number] Ioversol (Optiray 320 100ml) 95 ml IV ONCE PRN PRN Reason: Interaction Checking Stop: 09/13/18 00:39 Last Admin: 09/09/18 00:40 Dose: 95 ml Documented by: [id number] Discontinued Medications Magnesium Sulfate/Dextrose (Magnesium Sulfate / D5w) 1 gm in 100 mls @ 100 mls/hr IV Q1H DB Stop: 09/09/18 02:29 Last Admin: 09/09/18 01:40 Dose: 100 mls/hr Documented by: [id number] Infusion: 09/09/18 01:40 Dose: 0 mls/hr Documented by: [id number] Admin: 09/09/18 00:36 Dose: 100 mls/hr Documented by: [id number] Potassium Chloride (K Juice / Wtr) 10 meq in 100 mls @ 100 mls/hr IV ONE ONE Stop: 09/09/18 01:15 Last Infusion: 09/09/18 01:40 Dose: 0 mls/hr Documented by: [id number] Admin: 09/09/18 00:36 Dose: 100 mls/hr Documented by: [id number] Sodium Chloride (Nss 1000ml) 500 mls @ 999 mls/hr IV .Q31M ONE Stop: 09/09/18 02:08 Last Admin: 09/09/18 01:41 Dose: 999 mls/hr Documented by: [id number] Morphine Sulfate (Morphine Sulfate) 4 mg IV NOW STA Stop: 09/08/18 22:58 Last Admin: 09/08/18 23:56 Dose: 4 mg Documented by: [id number] Ondansetron HCl (Zofran) 4 mg IV NOW STA Stop: 09/08/18 22:58 Last Admin: 09/08/18 23:56 Dose: 4 mg Documented by: [id number] Medical Decision Making Medical Records Attestation: I reviewed the patient's medical records. Home Medications Current Medication List: was personally reviewed by me Laboratory Data Attestation: I reviewed the patient's lab results. Result diagrams: 09/08/18 23:33 09/08/18 23:33 Lab Results 09/08/18 09/08/18 09/09/18 Range/Units 23:33 23:33 00:00 WBC 4.63 L (4.8-10.8) K/uL RBC 4.28 L (4.7-6.1) M/uL Hgb 10.2 L (14.0-18.0) g/dL Hct 30.6 L (42-52) % MCV 71.5 L (80-100) fL MCH 23.8 L (25-34) pg MCHC 33.3 (32-36) g/dL RDW Std Deviation 57.2 H (36.4-46.3) fL RDW Coeff of Chandni 22.0 H (11.5-14.5) % Plt Count 346 (130-400) K/uL MPV 9.2 (7.4-10.4) fL Immature Gran % (Auto) 0.2 % Neut % (Auto) 53.0 % Lymph % (Auto) 28.3 % [place] % (Auto) 11.2 % Eos % (Auto) 6.9 % Baso % (Auto) 0.4 % Immature Gran # (Auto) 0.01 (0.00-0.02) K/uL Neut # (Auto) 2.45 (1.4-6.5) K/uL Lymph # (Auto) 1.31 (1.2-3.4) K/uL [place] # (Auto) 0.52 (0.11-0.59) K/uL Eos # (Auto) 0.32 (0-0.5) K/uL Baso # (Auto) 0.02 (0-0.2) K/uL Hypochromasia Present Anisocytosis Present Microcytosis Present Sodium 139 (136-145) mmol/L Potassium 2.8 L (3.5-5.1) mmol/L Chloride 105 (98-107) mmol/L Carbon Dioxide 26 (21-32) mmol/L Anion Gap 7.0 (3-11) BUN 6 L (7-18) mg/dl Creatinine 0.50 L (0.6-1.4) mg/dl Est Cr Clr Drug Dosing 123.6 ml/min Est GFR ( Amer) 145.4 Est GFR (Non-Af Amer) 125.5 BUN/Creatinine Ratio 11.9 (10-20) Glucose 78 (70-99) mg/dl Calcium 8.0 L (8.5-10.1) mg/dl Magnesium 1.4 L (1.8-2.4) mg/dl Total Bilirubin 0.3 (0.2-1) mg/dl AST 121 H (15-37) U/L ALT 57 (12-78) U/L Alkaline Phosphatase 220 H (45-117) U/L Total Creatine Kinase 22 L (39-308) U/L Troponin I 0.051 H* (0-0.045) ng/ml Total Protein 6.1 L (6.4-8.2) gm/dl Albumin 1.9 L (3.4-5.0) gm/dl Globulin 4.2 H (2.5-4.0) gm/dl Albumin/Globulin Ratio 0.5 L (0.9-2) Urine Color Yellow Urine Appearance Cloudy H (Clear) Urine pH 6.0 (4.5-7.5) Ur Specific [place] 1.016 (1.000-1.030) Urine Protein Negative (Negative) Urine Glucose (UA) Negative (Negative) Urine Ketones Negative (Negative) Urine Blood Negative (Negative) Urine Nitrite Negative (Negative) Urine Bilirubin Negative (Negative) Urine Urobilinogen Negative (Negative) Ur Leukocyte Esterase 3+ H (Negative) Urine WBC (Auto) >30 H (0-5) /hpf Urine RBC (Auto) 0-4 (0-4) /hpf U Hyaline Cast (Auto) 1-5 (0-5) /lpf U Epithel Cells (Auto) 20-30 H (0-5) /lpf Urine Bacteria (Auto) Negative (Negative) Urine Crystals Not Reportable Calcium Oxalate Crystal Present H (None Prsent) Imaging Data Attestation: I personally reviewed and interpreted this imaging study as follows: Blood Pressure Blood Pressure Findings: Low blood pressure Blood Pressure Disposition: further management by hospitalist [facility] Narrative Prior records/ancillary studies reviewed. Triage Nursing notes reviewed. Additional history obtained from the family. The patient's history was concerning for nausea, vomiting, and abdominal pain. Differential diagnosis: Etiologies such as gastroenteritis, food borne illness, infections, appendicitis, diverticulitis, inflammatory bowel disease, obstruction, GI bleed, biliary pathology, as well as others were entertained. Physical examination findings: As above. Abdominal examination revealed nontender. Vital signs reviewed and revealed reviewed. ER treatment provided: IV hydration 1 L NSS. Reglan, Benadryl, morphine, potassium, magnesium, gingerale On reassessment the patient felt better. Patient was tolerating p.o. intake. Diagnostics interpretation by me: EKG: Normal sinus, prolonged QT, no acute ST-T wave changes. Impression normal sinus rhythm with a prolonged QT interval by myself. Repeat EKG is unchanged. Patient's magnesium and potassium are low which most likely explains the prolonged QT. The labs revealed elevated troponin. Hypokalemia. Hypomagnesia Imaging studies: CT L SPINE: Status post posterior lumbar fusion at L2-L5 with fixation screws extending to the bilateral iliac bones. Mild old appearing compression fracture mainly at the superior endplate of L2. Lucency surrounds the bilateral L2 pedicular screws concerning for loosening. Patchy sclerosis involving the L2 vertebral body L5 vertebral body and S1 vertebral by with a permeative appearance of L5 and S1 which probably represents chronic osteomyelitis. High density surgical material mixed with gas measuring 5 x 5 x 3 cm wedged between the L5 and S1 vertebral bodies. It distends the L5-S1 disc space and extends into the posterior spinal canal. Recommend correlation with surgical details. Moderate prevertebral and paravertebral soft tissue swelling mainly at L4-S1 is of unknown etiology. This could represent scarring from previous infection or surgery. Acute infection is difficult to exclude. Consider lumbar puncture. This may be the cause of the occlusion and kinking of the bilateral iliac stents. Radiologist: Conchita Solorzano MD CT ABDOMEN & PELVIS With Contrast: Small pericardial effusion. Status post cholecystectomy. No biliary dilatation. Left kidney is absent. Normal right kidney. Bladder is decompressed by indwelling Cloud catheter. Normal appendix. No bowel wall thickening or obstruction. Chronic deformities and superior dislocation of the bilateral hips. Soft tissue/synovial thickening surrounding the right hip has increased and of unknown etiology. Recommend clinical correlation with infection. No fluid collection. Intraperitoneal thrombus in the suprarenal abdominal aorta appears increased causing 50% stenosis. The bilateral common iliac stents are occluded which is new but reconstituted distally likely from collaterals. Radiologist: Conchita Solorzano MD Consultation: A consultation was placed with the hospitalist. The case was discussed and diagnostics were reviewed. The patient was evaluated in the ER for further treatment. This appears to be consistent with nausea, vomiting, dehydration, elevated troponin, low magnesium and potassium. Imaging was reviewed with chronic change. Notes were obtained from [employer]. Patient states overall he feels better from his back infection and is mainly here just for the nausea and vomiting. 2 EKGs were unchanged. Medicine was consulted and will admit the patient. By the evaluation outlined above emergent etiologies such as appendicitis, diverticulitis, obstruction, cardiac sources, mesenteric ischemia, aortic pathology, inflammatory bowel disease, renal colic, PUD, biliary pathology, as well as others were deemed relatively unlikely. The pt informed about the findings as listed above. All questions were answered and pleased with the treatment. Case reviewed with my attending The chart was completed utilizing [employer] Speech voice recognition software. Grammatical errors, random word insertions, pronoun errors, and incomplete sentences are an occassional consequence of this system due to software limi tations, ambient noise, and hardware issues. Any formal questions or concerns about the content, text, or information contained within the body of this dictation should be directly addressed to the physician molding line assistant for clarification. Impression & Plan Vomiting, Hypomagnesemia, Hypokalemia, Acute dehydration, Elevated troponin Discharge Plan Visit Data Chief Complaint: Illness Stated Complaint: VOMITING, NAUSEA ED Provider: Yuniel Reyes ED Midlevel Provider: Jessika Tsai Discharge Problem: Vomiting, Hypomagnesemia, Hypokalemia, Acute dehydration, Elevated troponin Patient Disposition: Admitted As Inpatient Condition: Fair Forms Stand Alone Forms: [facility] Prescriptions Prescriptions: No Action tizanidine 2 mg tablet 2 mg PO Q8H PRN (Reason: Spasms) RF: 0 fluconazole 200 mg tablet 200 mg PO BID RF: 0 midodrine 5 mg tablet 5 mg PO TID RF: 0 ferrous sulfate 325 mg (65 mg iron) Tablet 325 mg PO BID RF: 0 gabapentin 300 mg capsule 300 mg PO TID RF: 0 oxycodone 5 mg tablet 5 mg PO Q8H PRN (Reason: Pain) RF: 0 clindamycin HCl [Cleocin HCl] 300 mg capsule 300 mg PO QID RF: 0 ciprofloxacin HCl [Cipro] 500 mg tablet 500 mg PO Q12 RF: 0 Dakin's Solution 0.25 % Solution 1 applic TOPICAL Q8 RF: 0 acetaminophen [Tylenol] 325 mg Capsule 650 mg PO Q6H PRN (Reason: Pain) RF: 0 Probiotic 10 billion cell Capsule 1 tab PO BID RF: 0 polyethylene glycol 3350 [Miralax] 17 gram Powder In Packet 17 g PO DAILY PRN (Reason: Constipation) RF: 0 aspirin [Aspirin Low Dose] 81 mg Tablet,Delayed Release (Dr/Ec) 81 mg PO DAILY RF: 0 famotidine [Pepcid] 20 mg Tablet 20 mg PO BID RF: 0 metoprolol tartrate 25 mg Tablet 25 mg PO DAILY PRN (Reason: bp >180/90) RF: 0 Slow-Mag 71.5 mg Tablet,Delayed Release (Dr/Ec) 143 mg PO DAILY RF: 0 Referrals Referrals: Cheri Antoine MD [Primary Care Provider] - Discharge Problem: Vomiting Qualifiers: Vomiting type: unspecified Vomiting Intractability: non-intractable Nausea presence: with nausea Qualified Code(s): R11.2 - Nausea with vomiting, unspecified
[2018-09-09] MEDS ORDERED: POTASSIUM CHLORIDE 20 MEQ TABCR PO STA (03:45)
[2018-09-09] MEDS ORDERED: TIZANIDINE HCL 4 MG TABLET PO PRN (04:11)
[2018-09-09] MEDS ORDERED: OXYCODONE HCL IR 5 MG TAB (IMMEDIATE RELEASE) PO PRN (04:11)
[2018-09-09] MEDS ORDERED: METOPROLOL TARTRATE 25 MG TAB PO PRN (04:11)
[2018-09-09] MEDS ORDERED: POLYETHYLENE (MIRALAX) 17 GM PACK PO PRN (04:11)
[2018-09-09] MEDS ORDERED: ACETAMINOPHEN 325 MG TAB PO PRN (04:11)
[2018-09-09] MEDS: POTASSIUM CHLORIDE / WTR 10 MEQ/100 ML PLCT IV SCH ×2 (05:17→06:14)
[2018-09-09] MEDS ORDERED: HEPARIN 100 UNIT/ML 5ML FLUSH FLUSH PRN (06:27)
--- NOTE | 2018-09-09 07:20 | CT Scan Report ---
ABDOMEN AND PELVIS CT WITH IV CONTRAST CT DOSE: 298.32 mGy.cm HISTORY: Acute mid abdominal and low back pain mid abd pain TECHNIQUE: Multiaxial CT images of the abdomen and pelvis were performed following the use of intrave nous contrast. A dose lowering technique was utilized adhering to the principles of ALARA. COMPARISON STUDY: CT lumbar spine of same day, CT abdomen and pelvis 03/13/2018 FINDINGS: Heart is mildly enlarged. Small to moderate pericardial effusion measures up to 10 mm posteriorly. Tr francis left pleural effusion. Left basilar atelectasis/scarring. Is no pneumatosis or pneumoperitoneum. Cholecystectomy. The liver, spleen, pancreas and adrenal glands are unremarkable. Patency of the hepa tic and portal veins. Absent left kidney. Compensatory hypertrophy of the right kidney. No right-side d renal calculi or hydronephrosis. Decompressed or bladder with Cloud catheter in place. Urinary blad rahul wall thickening with scattered intraluminal air within the bladder. Small right hydrocele. Thrombus versus atheromatous plaque noted throughout the aorta extending from the suprarenal location to the level of the aortobiiliac stent graft. This results in approximately 50% luminal narrowing of the aorta. Aortobiiliac stents appear to be occluded with reconstitution of flow in adjacent collate rals noted involving the iliac arteries. Scattered small bowel air-fluid levels without bowel obstruc tion. Moderate volume of formed stool is noted throughout the colon. Visualized appendix appears unre markable. No ascites or mesenteric inflammation. Mild generalized body wall edema. Pseudoarthrosis at the lumbosacral junction redemonstrated. Persistent yet decreased soft tissue thickening within this distribution. Demineralized appearance of the bones. Chronic pseudoarthrosis with subluxation of the bilateral femoral acetabular joints. Synovial thickening with bilateral joint effusions involve the femoral acetabular joints. Posterior interbody rafael and screw fusion noted at L2-L5 with bilateral candida ac bolts. IMPRESSION: 1. No bowel obstruction or focal bowel wall thickening. 2. Suggested constipation. 3. Occluded aortobiiliac stent graft redemonstrated with reconstitution of flow noted about the dista l portions of the bilateral common iliac arteries. 4. Small to moderate pericardial effusion. 5. Absent left kidney with compensatory hypertrophy of the right kidney. 6. Additional findings as above. Electronically signed by: Joaquim Camargo M.D. 09/09/2018 7:19 AM
--- NOTE | 2018-09-09 07:27 | CT Scan Report ---
CT lumbar spine w con HISTORY: Low back pain. Possible infection. TECHNIQUE: Multiaxial CT images of the lumbar spine were performed and reformatted in the sagittal an d coronal plane following the use of intravenous contrast. COMPARISON STUDY: Abdomen and pelvis CT 03/13/2018. FINDINGS: Posterior decompression fusion from L2 through S1. There are pedicle screws from L2 through L5 and bilateral iliac bones. No pedicle screws at the S1 level. The hardware appears intact. Near c omplete destruction of the S1 vertebral body with partial destruction of the inferior plate of L5. Th is has progressed in the interval. Focal high density material and gas which between the L5-S1 disc s pace which appears to completely obliterate/obstruct the central canal. This measures approximately 4 .8 x 2.6 cm and could represent surgical material. Clinical correlation recommended. Abnormal paraver tebral soft tissue swelling from L2 through S2. This also abnormal soft tissue within the sacral ramses l at the S2 level which extend into the neural foramen of S1-S2. Focal skin ulceration posterior to t he L4 level which extends into the laminectomy site. This is best seen on axial image 162 and measure s 2.5 x 2.5 cm. Evaluation of the central canal is essentially nondiagnostic due to the CT technique and metallic artifact. However, there is greater than expected soft tissue density at the central can al from the L2-L4 levels. Interval development of a superior endplate compression fracture at L2 with mild sclerosis suggesting a subacute process. There is periprosthetic lucency at the pedicle screws at this level. Therefore, this could be due to loosening or additional site of chronic infection. Aor tobiiliac stent graft is noted. The distal stent is difficult to assess due to the metallic artifact but appears occluded. This is similar to the prior study. Chronic abdominal aortic dissection is note d. IMPRESSION: 1. Progressive destruction of the majority of the S1 vertebral body and inferior endplate of L5 consi stent with a discitis/osteomyelitis. There is high density material and gas between the L5-S1 disc sp francis which appears to completely obliterate/obstructing central canal. This measures 4.8 x 2.6 cm and could represent surgical material. Clinical correlation recommended. 2. Abnormal paravertebral soft tissue thickening from the L2-S2 levels which extend into the sacral c anal and bilateral S1-S2 neural foramen. This likely represents infectious change. There is also grea ter than expected soft tissue density within the central canal of the L2-L4 levels which may also rep resent an infectious process. However, this is difficult to assess due to the metallic artifact in CT technique. 3. Subacute mild superior endplate compression fracture at L2 with periprosthetic lucency surrounding the pedicle screws. This could also represent infectious process. 4. Focal skin ulceration which extends to the laminectomy sites at the L4 level measuring 2.5 x 2.5 c m. 5. Redemonstration of the excluded distal aortobiiliac stent graft. Electronically signed by: Shimon Lopez M.D. 09/09/2018 7:25 AM
--- NOTE | 2018-09-09 07:28 | XRay Report ---
XR chest 2V routine CLINICAL HISTORY: weak dyspnea COMPARISON STUDY: 08/09/2018 FINDINGS: Mild stable cardiomegaly. Central catheter remains in superior vena cava. Diaphragms are sm ooth. Lungs are considered clear. IMPRESSION: Mild stable cardiomegaly. No acute process. The above report was generated using voice recognition software. It may contain grammatical, syntax or spelling errors. Electronically signed by: Marco Harper M.D. 09/09/2018 7:27 AM
[2018-09-09] MEDS: FERROUS SULFATE 325 MG TAB PO SCH ×2 (08:11→17:31)
[2018-09-09] MEDS: ASPIRIN 81 MG ECTAB PO SCH (08:11)
[2018-09-09] MEDS: DAKIN'S SOLN 0.25% HALF STRENGTH 473ML BTL EXT SCH ×3 (08:11→21:13)
[2018-09-09] MEDS: GABAPENTIN 300 MG CAP PO SCH ×3 (08:12→21:13)
[2018-09-09] MEDS: MIDODRINE HCL 2.5 MG TAB PO SCH ×3 (08:12→17:31)
[2018-09-09] MEDS: CLINDAMYCIN HCL 150 MG CAP PO SCH ×4 (08:12→21:12)
[2018-09-09] MEDS: CIPROFLOXACIN 500 MG TAB PO SCH ×2 (08:12→21:12)
[2018-09-09] MEDS: MAGNESIUM CHLORIDE 64MG DELAYED REL TAB PO SCH (08:13)
[2018-09-09] MEDS: FLUCONAZOLE 100 MG TAB PO SCH ×2 (08:13→21:12)
[2018-09-09] MEDS: FAMOTIDINE 20 MG TAB PO SCH ×2 (08:13→21:13)
[2018-09-09] MEDS: ENOXAPARIN INJ 40 MG/0.4 ML SYR SQ SCH (08:13)
[2018-09-09] MEDS ORDERED: LACTOBACILLUS ACIDOPHILUS PO SCH (09:00)
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
[2018-09-09 10:10] LABS: INR 1.3 (0.9-1.1); Prothrombin Time 12.8 Seconds (9.0-12.0)
--- NOTE | 2018-09-09 10:25 | Gastrointestinal Consultation ---
Date of Consultation September 09, 2018 Assessment & Plan (1) Nausea: 53 year old male w/ quadriplegia secondary to spinal cord injury, sacral ulcer stage IV, lumbosacral polymicrobial osteomyelitis on IV abx w/ prior surgical intervetions, testicular CA, R-BKA and L-AKA who presents through the ED w/ nausea and vomiting x 1 month. No abdominal pain. He has been on IV abx for osteomyeitis. Mild LFT elevation, does not appear a lipase was checked. DDX discussed: med induced N/V vs gastritis vs constipation vs PUD vs pancreatitis vs biliar colic vs other - Lipase - RUQ US - Antiemetics PRN - Please start IV pepcid - Please start a bowel regimen - Constipation noted on CT could be contributing to his symptoms - Miralax 1 capful daily - EGD evaluation pending workup above and symptoms - Would need card clearance w/ troponin elevation Thank you for allowing us to participate in the care of this patient. Please call with any acute changes, questions or concerns. Please see addendum below with additional recommendation from my supervising physician. Present on Admission?: Yes History of Present Illness Reason for Consultation: nausea Requesting Physician: Mayda Attending Physician: Bigg Ohara MD History of Present Illness 53 year old male with history of quadriplegia secondary to spinal cord injury, sacral ulcer stage IV, lumbosacral polymicrobial osteomyelitis on IV abx w/ prior surgical intervetions, seminoma of testis, R BKA and L AKA 2/2 to aortoiliac thrombosis who presented through the ED for evaluation of nause and vomiting. Pt was seen and evaluated, chart reviewed. He notes for the past 1-2 monts he has had daily nausea with bouts of vomiting. This will be food, water or bile. Denies any abdominal pain. no change in appetite. no weigt loss. no change in bowel movements. Endorses formed, brown stool daily. Tells me he ate dinner last night without any issue. no fever, chills, CP, SOB. On arrival he was afebrile, no leukocytosis. H&H stable from prior labs w/ normal PLT count. Normal TB w/ mildly elevated LFTs w/ AST 121, ALT 57, ALKP 220. Troponin was elevated as well. Repeat pending. Of note his outpatient LFTs were elevated in similar pattern 4/15/19 CT: No bowel obstruction or focal bowel wall thickening. Suggested constipation.Occluded aortobiiliac stent graft redemonstrated with reconstitution of flow noted about the distal portions of the bilateral common iliac arteries.Small to moderate pericardial effusion.Absent left kidney with compensatory hypertrophy of the right kidney.Additional findings as above. EGD: none Colonoscopy: none Allergies Allergy/AdvReac Type Severity Reaction Status Date / Time No Known Allergies Allergy Verified 09/08/18 23:14 Home Medications Home Medications Medication Instructions Recorded Confirmed Type aspirin [Aspirin Low Dose] 81 mg PO DAILY 03/13/18 09/08/18 History famotidine [Pepcid] 20 mg PO BID 03/13/18 09/08/18 History magnesium chloride [Slow-Mag] 143 mg PO DAILY 03/13/18 09/08/18 History metoprolol tartrate 25 mg PO DAILY PRN 03/13/18 09/08/18 History polyethylene glycol 3350 [Miralax] 17 g PO DAILY PRN 03/13/18 09/08/18 History ferrous sulfate 325 mg PO BID 08/09/18 09/08/18 History fluconazole 200 mg PO BID 08/09/18 09/08/18 History gabapentin 300 mg PO TID 08/09/18 09/08/18 History midodrine 5 mg PO TID 08/09/18 09/08/18 History oxycodone 5 mg PO Q8H PRN 08/09/18 09/08/18 History tizanidine 2 mg PO Q8H PRN 08/09/18 09/08/18 History acetaminophen [Tylenol] 650 mg PO Q6H PRN 09/08/18 09/08/18 History ciprofloxacin HCl [Cipro] 500 mg PO Q12 09/08/18 09/08/18 History clindamycin HCl [Cleocin HCl] 300 mg PO QID 09/08/18 09/08/18 History sodium hypochlorite [Dakin's 1 applic TOPICAL Q8 09/08/18 09/08/18 History Solution] Lactobacillus acidophilus 1 tab PO BID 09/09/18 09/09/18 History [Probiotic] Patient History Medical History Anemia (Chronic) Paraplegia (Chronic) Testicular cancer (Resolved) Osteomyelitis (Chronic) Cardiomegaly (Chronic) Paraplegia (Chronic) Postural headache (Resolved) Sepsis (Resolved) Surgical History History of cholecystectomy (Resolved) Social History Preferred Language: [place] Communication Ability: Effective Research Anthropologist Required: No Beliefs That Will Affect Care: None Current Living Situation: Parent and Other Other Information That Helps Us Care for You: No Feels Safe at Home: Yes Safety Concerns: Feels Safe At This Time Smoking Status: Never smoker Tobacco Type: smokeless tobacco Do You Dip or Chew Tobacco: Yes Tobacco Cessation Education Requested by Patient: No Hx Alcohol Use: No Hx Substance Use: No Review of Systems Constitutional: + fatigue and + weakness; no fever, no chills and no body aches Respiratory: no cough, no dyspnea, no snoring and no wheezing Cardiovascular: no chest pain, no radiating jaw, neck or arm pain, no dyspnea on exertion and no palpitations Gastrointestinal: + nausea; no abdominal pain, no bloating, no early satiety, no heartburn, no vomiting, no coffee ground emesis, no hematemesis, no pain with swallowing, no dysphagia, no cramping, no excessive flatulence, no change in bowel habits, no change in stools, no constipation, no diarrhea/loose stools, no fecal incontinence, no constant urge to pass stools, no blood in stools and no melena Physical Exam Constitutional: WD/WN, vitals as above no acute distress Respiratory: normal respiratory effort, lungs clear to auscultation Cardiovascular: RRR, no murmur, no edema Gastrointestinal (Abdomen): normal bowel sounds, soft, nontender, no hepatosplenomegaly Skin: no rashes, warm and dry Results & Data Vital Signs (Past 12 Hours) Vital Signs Temp Pulse Resp BP BP Pulse Ox 09/09/18 08:03 36.5 C 58 L 18 124/81 98 09/09/18 07:32 36.7 C 52 L 20 138/84 99 09/09/18 04:25 36.6 C 58 L 18 130/84 100 09/09/18 03:19 57 L 18 129/78 99 04/23/19 01:23 54 L 20 92/54 L 94 09/08/18 23:30 58 L 14 111/71 98 Laboratory Results 09/09/18 09/09/18 09/09/18 Range/Units 09:52 07:34 00:00 WBC (4.8-10.8) K/uL RBC (4.7-6.1) M/uL Hgb (14.0-18.0) g/dL Hct (42-52) % MCV (80-100) fL MCH (25-34) pg MCHC (32-36) g/dL RDW Std Deviation (36.4-46.3) fL RDW Coeff of Chandni (11.5-14.5) % Plt Count (130-400) K/uL MPV (7.4-10.4) fL Immature Gran % (Auto) % Neut % (Auto) % Lymph % (Auto) % Mcleod % (Auto) % Eos % (Auto) % Baso % (Auto) % Immature Gran # (Auto) (0.00-0.02) K/uL Neut # (Auto) (1.4-6.5) K/uL Lymph # (Auto) (1.2-3.4) K/uL Mcleod # (Auto) (0.11-0.59) K/uL Eos # (Auto) (0-0.5) K/uL Baso # (Auto) (0-0.2) K/uL Hypochromasia Anisocytosis Microcytosis PT 12.8 H (9.0-12.0) Seconds INR 1.3 H (0.9-1.1) Sodium (136-145) mmol/L Potassium (3.5-5.1) mmol/L Chloride (98-107) mmol/L Carbon Dioxide (21-32) mmol/L Anion Gap (3-11) BUN (7-18) mg/dl Creatinine (0.6-1.4) mg/dl Est Cr Clr Drug Dosing ml/min Est GFR ( Amer) Est GFR (Non-Af Amer) BUN/Creatinine Ratio (10-20) Glucose (70-99) mg/dl Calcium (8.5-10.1) mg/dl Magnesium (1.8-2.4) mg/dl Total Bilirubin (0.2-1) mg/dl AST (15-37) U/L ALT (12-78) U/L Alkaline Phosphatase (45-117) U/L Total Creatine Kinase (39-308) U/L Troponin I 0.048 H* (0-0.045) ng/ml Total Protein (6.4-8.2) gm/dl Albumin (3.4-5.0) gm/dl Globulin (2.5-4.0) gm/dl Albumin/Globulin Ratio (0.9-2) Urine Color Yellow Urine Appearance Cloudy H (Clear) Urine pH 6.0 (4.5-7.5) Ur Specific Mercedes 1.016 (1.000-1.030) Urine Protein Negative (Negative) Urine Glucose (UA) Negative (Negative) Urine Ketones Negative (Negative) Urine Blood Negative (Negative) Urine Nitrite Negative (Negative) Urine Bilirubin Negative (Negative) Urine Urobilinogen Negative (Negative) Ur Leukocyte Esterase 3+ H (Negative) Urine WBC (Auto) >30 H (0-5) /hpf Urine RBC (Auto) 0-4 (0-4) /hpf U Hyaline Cast (Auto) 1-5 (0-5) /lpf U Epithel Cells (Auto) 20-30 H (0-5) /lpf Urine Bacteria (Auto) Negative (Negative) Urine Crystals Not Reportable Calcium Oxalate Crystal Present H (None Prsent) 09/08/18 09/08/18 Range/Units 23:33 23:33 WBC 4.63 L (4.8-10.8) K/uL RBC 4.28 L (4.7-6.1) M/uL Hgb 10.2 L (14.0-18.0) g/dL Hct 30.6 L (42-52) % MCV 71.5 L (80-100) fL MCH 23.8 L (25-34) pg MCHC 33.3 (32-36) g/dL RDW Std Deviation 57.2 H (36.4-46.3) fL RDW Coeff of Chandin 22.0 H (11.5-14.5) % Plt Count 346 (130-400) K/uL MPV 9.2 (7.4-10.4) fL Immature Gran % (Auto) 0.2 % Neut % (Auto) 53.0 % Lymph % (Auto) 28.3 % Mcleod % (Auto) 11.2 % Eos % (Auto) 6.9 % Baso % (Auto) 0.4 % Immature Gran # (Auto) 0.01 (0.00-0.02) K/uL Neut # (Auto) 2.45 (1.4-6.5) K/uL Lymph # (Auto) 1.31 (1.2-3.4) K/uL Mcleod # (Auto) 0.52 (0.11-0.59) K/uL Eos # (Auto) 0.32 (0-0.5) K/uL Baso # (Auto) 0.02 (0-0.2) K/uL Hypochromasia Present Anisocytosis Present Microcytosis Present PT (9.0-12.0) Seconds INR (0.9-1.1) Sodium 139 (136-145) mmol/L Potassium 2.8 L (3.5-5.1) mmol/L Chloride 105 (98-107) mmol/L Carbon Dioxide 26 (21-32) mmol/L Anion Gap 7.0 (3-11) BUN 6 L (7-18) mg/dl Creatinine 0.50 L (0.6-1.4) mg/dl Est Cr Clr Drug Dosing 123.6 ml/min Est GFR ( Amer) 145.4 Est GFR (Non-Af Amer) 125.5 BUN/Creatinine Ratio 11.9 (10-20) Glucose 78 (70-99) mg/dl Calcium 8.0 L (8.5-10.1) mg/dl Magnesium 1.4 L (1.8-2.4) mg/dl Total Bilirubin 0.3 (0.2-1) mg/dl AST 121 H (15-37) U/L ALT 57 (12-78) U/L Alkaline Phosphatase 220 H (45-117) U/L Total Creatine Kinase 22 L (39-308) U/L Troponin I 0.051 H* (0-0.045) ng/ml Total Protein 6.1 L (6.4-8.2) gm/dl Albumin 1.9 L (3.4-5.0) gm/dl Globulin 4.2 H (2.5-4.0) gm/dl Albumin/Globulin Ratio 0.5 L (0.9-2) Urine Color Urine Appearance (Clear) Urine pH (4.5-7.5) Ur Specific Mercedes (1.000-1.030) Urine Protein (Negative) Urine Glucose (UA) (Negative) Urine Ketones (Negative) Urine Blood (Negative) Urine Nitrite (Negative) Urine Bilirubin (Negative) Urine Urobilinogen (Negative) Ur Leukocyte Esterase (Negative) Urine WBC (Auto) (0-5) /hpf Urine RBC (Auto) (0-4) /hpf U Hyaline Cast (Auto) (0-5) /lpf U Epithel Cells (Auto) (0-5) /lpf Urine Bacteria (Auto) (Negative) Urine Crystals Calcium Oxalate Crystal (None Prsent)
[2018-09-09 11:43] LABS: Potassium 3.7 mmol/L (3.5-5.1)
[2018-09-09 11:51] LABS: Magnesium 1.8 mg/dl (1.8-2.4); Troponin I 0.045 ng/ml (0-0.045)
[2018-09-09] MEDS: SODIUM CHLORIDE 0.9% 1000ML 1,000 ML IV SCH (12:01)
--- NOTE | 2018-09-09 14:27 | Ultrasound Report ---
US abdomen limited HISTORY: Pain. Nausea. elevated LFT, nause and vomiting. COMPARISON: None. FINDINGS: Pancreas: The pancreas demonstrates a normal echotexture. Liver: Unremarkable. Gallbladder: Prior cholecystectomy CBD: 3.5 mm Right kidney: No hydronephrosis. IMPRESSION: Negative study post cholecystectomy. The above report was generated using voice recognition software. It may contain grammatical, syntax or spelling errors. Electronically signed by: Marco Harper M.D. 09/09/2018 2:26 PM
[2018-09-09] MEDS: ONDANSETRON INJ 2 MG/ML 2 ML VIAL IV PRN (17:25)
[2018-09-10] MEDS: SODIUM CHLORIDE 0.9% 1000ML 1,000 ML IV SCH ×3 (01:00→23:38)
[2018-09-10] MEDS: DAKIN'S SOLN 0.25% HALF STRENGTH 473ML BTL EXT SCH ×3 (07:05→20:22)
[2018-09-10] MEDS: FERROUS SULFATE 325 MG TAB PO SCH ×2 (07:29→16:53)
[2018-09-10] MEDS: CIPROFLOXACIN 500 MG TAB PO SCH ×2 (07:30→21:00)
[2018-09-10] MEDS: CLINDAMYCIN HCL 150 MG CAP PO SCH ×4 (07:30→21:00)
[2018-09-10] MEDS: MIDODRINE HCL 2.5 MG TAB PO SCH ×3 (07:30→16:54)
[2018-09-10] MEDS: FLUCONAZOLE 100 MG TAB PO SCH ×2 (07:31→20:59)
[2018-09-10] MEDS: ASPIRIN 81 MG ECTAB PO SCH (07:31)
[2018-09-10] MEDS: MAGNESIUM CHLORIDE 64MG DELAYED REL TAB PO SCH (07:32)
[2018-09-10] MEDS: FAMOTIDINE 20 MG TAB PO SCH ×2 (07:32→21:01)
[2018-09-10] MEDS: GABAPENTIN 300 MG CAP PO SCH ×3 (07:32→20:59)
[2018-09-10] MEDS: ENOXAPARIN INJ 40 MG/0.4 ML SYR SQ SCH (08:02)
[2018-09-10 09:05] LABS: Hematocrit (blood only) 31.3 % (42-52); Hemoglobin 10.3 g/dL (14.0-18.0); Mean Corpuscular Hgb Conc 32.9 g/dL (32-36); Mean Corpuscular Volume 71.6 fL (80-100); Mean Platelet Volume 9.4 fL (7.4-10.4); Platelet Count 389 K/uL (130-400); RDW Coefficient of Variation 21.8 % (11.5-14.5); RDW Standard Deviation 56.9 fL (36.4-46.3); Red Blood Count 4.37 M/uL (4.7-6.1); White Blood Count 3.85 K/uL (4.8-10.8)
[2018-09-10 09:48] LABS: BUN Creatinine Ratio 4.1 (10-20); Calcium 7.8 mg/dl (8.5-10.1); Creatinine Clr Calc Pharmacy 104.8 ml/min; Est GFR (African American) 135.9; Est GFR (Non-African American) 117.2; Potassium 3.1 mmol/L (3.5-5.1)
--- NOTE | 2018-09-10 10:12 | Hospitalist Progress Note ---
Date of Service September 10, 2018 Assessment & Plan (1) Vomiting: (2) Nausea: Present on admission with persistent nausea and vomiting for several weeks. CT abd/pelvis showed No bowel obstruction or focal bowel wall thickening. Suggested constipation. U/SA abdomen negative study post cholecystectomy. Low Lipase Continue antiemetic and IVF GI on board recommended IV pepcid case discussed with GI On clear liquid diet, and advanced as tolerated Plan to get EGD done if symptoms does not improve Monitor electrolytes Elevated troponin Mostly due to dehydration from vomiting and poor intake Troponin on admission 0.051, then trending down to normal EKG showed no ischemic finding ECH showed no LV wall motion abnormality with EF >70 Denies any chest pain Constipation CT abd/pelvis suggested constipation Continue Miralax daily as per GI Electrolyte abnormalities Due to vomiting and poor oral intake K 3.1 today Will replace K Abnormal UA Chronic candelaria used UA positive for Leukocytes and WBC Urine cx grow multiple organisms (Contamination) Currently on cipro Osteomyelitis of the L5-S1 CT Lumbar showed progressive destruction of the majority of the S1 vertebral body and inferior endplate of L5 consistent with a discitis/osteomyelitis. There is high density material and gas between the L5-S1 disc space which appears to completely obliterate/obstructing central canal. This measures 4.8 x 2.6 cm and could represent surgical material. Follows with ID and spine surgery at [place]. S/P I&D done in July Recently had I and D done in July Continue the p.o. antibiotics of Cipro, clindamycin, and fluconazole. Wound care consult, but pt refused staff to do any daily wound care Only wants his nephew to do the dressing changes Will discuss CT finding with his surgeon in [place] Pt said that if he requires any procedure, he would rather do it in [place] Neurogenic bladder Chronic Candelaria . Stabe Hypertrophic obstructive cardiomyopathy Stable History of peripheral vascular disease, S/P Right BKA and Left AKA Fall precaution History of seminoma S/P left orchiectomy. Stable DVT px on Lovenox CODE STATUS FULL CODE Disposition Will discharge once medically stable Subjective Pt was seen and examined Lying in bed with no distress Pt said that he has not had any vomiting since yesterday He said that he was a little nauseated last night He said that he was able to tolerate clear liquid diet Denies any chest pain, palpitation, dizziness and SOB Physical Exam Physical Exam: General- No acute distress Head- atraumatic Eyes- PERRL, EOMI, ENT- oropharynx clear Neck- supple, no JVD Lungs- clear to auscultation Heart- regular rhythm; no murmur Abdomen- normal bowel sounds, soft, nontender Extremities- Status post right BKA and status post left AKA Neuro- alert, oriented x 3; PERRL, EOMI; no facial palsy; no dysarthria, move upper extremities, cervical paraplegia Skin- warm & dry Results & Data Vital Signs (Past 12 Hours) Vital Signs Temp Pulse Pulse Resp BP BP Pulse Ox 09/10/18 07:05 36.6 C 58 L 20 119/79 96 09/10/18 02:50 36.7 C 63 18 126/79 99 09/09/18 23:30 56 L 09/09/18 22:26 36.7 C 51 L 18 165/85 H 92 (1) Vomiting Nausea presence: with nausea Vomiting Intractability: non-intractable Vomiting type: unspecified Qualified Code(s): R11.2 - Nausea with vomiting, unspecified
--- NOTE | 2018-09-10 10:52 | Gastroenterology Progress Note ---
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 No abdominal pain. He has been on IV abx for osteomyeitis. Mild LFT elevation, does not appear a lipase was checked. DDX discussed: med induced N/V vs gastritis vs constipation vs PUD vs pancreatitis vs biliar colic vs other This AM symptoms resolved, tolerating diet. - Lipase negative - RUQ US negative - Antiemetics PRN - IV pepcid BID - Please start a bowel regimen - Constipation noted on CT could be contributing to his symptoms - Miralax 1 capful daily - No current indication for EGD GI to sign off. Thank you for allowing us to participate in the care of this patient. Please call with any acute changes, questions or concerns. Please see addendum below with additional recommendation from my supervising physician. Supervising Physician Co-Signing Physician Notes I have seen and examined the patient and discussed the management with BERNIE Ramos. I agree with her assessment and plan in its entirety. Subjective Pt was seen and evaluated, chart reviewed. No complaints this AM. No further nausea, vomiting. Tolerated diet last evening. no fever, chills, CP, SOB. Review of Systems Constitutional: + fatigue and + weakness; no fever, no chills and no body aches Gastrointestinal: + nausea; no abdominal pain, no bloating, no early satiety, no heartburn, no vomiting, no coffee ground emesis, no hematemesis, no pain with swallowing, no dysphagia, no cramping, no excessive flatulence, no change in bowel habits, no change in stools, no constipation, no diarrhea/loose stools, no fecal incontinence, no constant urge to pass stools, no blood in stools and no melena Physical Exam Constitutional: WD/WN, vitals as above no acute distress Respiratory: normal respiratory effort, lungs clear to auscultation Cardiovascular: RRR, no murmur, no edema Gastrointestinal (Abdomen): normal bowel sounds, soft, nontender, no hepatosplenomegaly Skin: no rashes, warm and dry Results & Data Vital Signs (Past 12 Hours) Vital Signs Temp Pulse Pulse Resp BP BP Pulse Ox 09/10/18 07:05 36.6 C 58 L 20 119/79 96 09/10/18 02:50 36.7 C 63 18 126/79 99 09/09/18 23:30 56 L Laboratory Results 09/10/18 09/10/18 09/09/18 Range/Units 08:54 08:54 21:00 WBC 3.85 L (4.8-10.8) K/uL RBC 4.37 L (4.7-6.1) M/uL Hgb 10.3 L (14.0-18.0) g/dL Hct 31.3 L (42-52) % MCV 71.6 L (80-100) fL MCH 23.6 L (25-34) pg MCHC 32.9 (32-36) g/dL RDW Std Deviation 56.9 H (36.4-46.3) fL RDW Coeff of Chandni 21.8 H (11.5-14.5) % Plt Count 389 (130-400) K/uL MPV 9.4 (7.4-10.4) fL Sodium 140 (136-145) mmol/L Potassium 3.1 L D (3.5-5.1) mmol/L Chloride 110 H (98-107) mmol/L Carbon Dioxide 24 (21-32) mmol/L Anion Gap 6.0 (3-11) BUN 2 L (7-18) mg/dl Creatinine 0.59 L (0.6-1.4) mg/dl Est Cr Clr Drug Dosing 104.8 ml/min Est GFR ( Amer) 135.9 Est GFR (Non-Af Amer) 117.2 BUN/Creatinine Ratio 4.1 L (10-20) Glucose 94 (70-99) mg/dl Calcium 7.8 L (8.5-10.1) mg/dl Magnesium (1.8-2.4) mg/dl Troponin I (0-0.045) ng/ml Lipase (73-393) U/L Nasal Screen MRSA (PCR) Negative (Negative) 09/09/18 09/09/18 Range/Units 19:39 11:11 WBC (4.8-10.8) K/uL RBC (4.7-6.1) M/uL Hgb (14.0-18.0) g/dL Hct (42-52) % MCV (80-100) fL MCH (25-34) pg MCHC (32-36) g/dL RDW Std Deviation (36.4-46.3) fL RDW Coeff of Chandni (11.5-14.5) % Plt Count (130-400) K/uL MPV (7.4-10.4) fL Sodium (136-145) mmol/L Potassium 3.7 D (3.5-5.1) mmol/L Chloride (98-107) mmol/L Carbon Dioxide (21-32) mmol/L Anion Gap (3-11) BUN (7-18) mg/dl Creatinine (0.6-1.4) mg/dl Est Cr Clr Drug Dosing ml/min Est GFR ( Amer) Est GFR (Non-Af Amer) BUN/Creatinine Ratio (10-20) Glucose (70-99) mg/dl Calcium (8.5-10.1) mg/dl Magnesium 1.8 (1.8-2.4) mg/dl Troponin I 0.044 0.045 (0-0.045) ng/ml Lipase 64 L (73-393) U/L Nasal Screen MRSA (PCR) (Negative)
[2018-09-10] MEDS ORDERED: POTASSIUM CHLORIDE 20 MEQ TABCR PO ONE (11:30)
[2018-09-10] MEDS: ONDANSETRON INJ 2 MG/ML 2 ML VIAL IV PRN (21:16)
[2018-09-11 06:48] LABS: Blood Urea Nitrogen 2 mg/dl (7-18); Calcium 7.6 mg/dl (8.5-10.1); Carbon Dioxide 25 mmol/L (21-32); Chloride 112 mmol/L (98-107); Creatinine Clr Calc Pharmacy 137.3 ml/min; Est GFR (African American) > 150.0; Glucose 66 mg/dl (70-99); Potassium 3.6 mmol/L (3.5-5.1); Sodium 140 mmol/L (136-145)
[2018-09-11] MEDS: DAKIN'S SOLN 0.25% HALF STRENGTH 473ML BTL EXT SCH ×2 (07:05→11:58)
[2018-09-11] MEDS: CLINDAMYCIN HCL 150 MG CAP PO SCH ×3 (07:31→16:40)
[2018-09-11] MEDS: FAMOTIDINE 20 MG TAB PO SCH (07:31)
[2018-09-11] MEDS: GABAPENTIN 300 MG CAP PO SCH ×2 (07:32→13:44)
[2018-09-11] MEDS: ENOXAPARIN INJ 40 MG/0.4 ML SYR SQ SCH (07:32)
[2018-09-11] MEDS: CIPROFLOXACIN 500 MG TAB PO SCH (07:32)
[2018-09-11] MEDS: FLUCONAZOLE 100 MG TAB PO SCH (07:32)
[2018-09-11] MEDS: MAGNESIUM CHLORIDE 64MG DELAYED REL TAB PO SCH (07:33)
[2018-09-11] MEDS: ASPIRIN 81 MG ECTAB PO SCH (07:33)
[2018-09-11] MEDS: MIDODRINE HCL 2.5 MG TAB PO SCH ×3 (07:33→16:40)
[2018-09-11] MEDS: FERROUS SULFATE 325 MG TAB PO SCH ×2 (07:33→16:40)
--- NOTE | 2018-09-11 17:26 | Hospitalist Progress Note ---
Date of Service September 11, 2018 Assessment & Plan (1) Vomiting: (2) Nausea: Present on admission with persistent nausea and vomiting for several weeks. CT abd/pelvis showed No bowel obstruction or focal bowel wall thickening. Suggested constipation. U/SA abdomen negative study post cholecystectomy. Low Lipase Continue antiemetic and IVF GI on board no indication for EGD since symptoms resolved Tolerated soft diet Clinically improves Elevated troponin Mostly due to dehydration from vomiting and poor intake Troponin on admission 0.051, then trending down to normal EKG showed no ischemic finding ECH showed no LV wall motion abnormality with EF >70 Denies any chest pain Constipation CT abd/pelvis suggested constipation Continue Miralax daily as per GI Electrolyte abnormalities Due to vomiting and poor oral intake K 3.6 today Stable Abnormal UA Chronic candelaria used UA positive for Leukocytes and WBC Urine cx grew yeast not enrrique albicans Osteomyelitis of the L5-S1 CT Lumbar showed progressive destruction of the majority of the S1 vertebral body and inferior endplate of L5 consistent with a discitis/osteomyelitis. There is high density material and gas between the L5-S1 disc space which appears to completely obliterate/obstructing central canal. This measures 4.8 x 2.6 cm and could represent surgical material. Pt said that if he requires any procedure, he would rather do it in [place] Case discussed with Dr. ortho surgeon Dr. Sherwood and CT reviewed Obtained permission from patient and picture was sent from [employer] ([employer]) to Dr. Sherwood As per Dr. Sherwood, The wound looks pretty good. Follow up with spine surgeon Dr. Sherwood in [place] on September 16 @ 12:30 PM Continue the p.o. antibiotics of Cipro, clindamycin, and fluconazole. Wound care consult, but pt refused staff to do any daily wound care Only wants his nephew to do the dressing changes Neurogenic bladder Chronic Candelaria . Stable Hypertrophic obstructive cardiomyopathy Stable History of peripheral vascular disease, S/P Right BKA and Left AKA Fall precaution History of seminoma S/P left orchiectomy. Stable DVT px on Lovenox CODE STATUS FULL CODE Disposition Follow up with spine surgeon Dr. Sherwood in [place] on September 16 @ 12:30 PM Follow up with your primary care provider Dr. Antoine (office will call you for the appointment) Subjective Pt was seen and examined Lying in bed with no distress Pt said that he feels much better He said that he tolerated his diet today I spoke to his orthopedic surgeon today dr. Sherwood about his CT lumbar spine Denies any chest pain, palpitation, dizziness and SOB Physical Exam Physical Exam: General- No acute distress Head- atraumatic Eyes- PERRL, EOMI, ENT- oropharynx clear Neck- supple, no JVD Lungs- clear to auscultation Heart- regular rhythm; +murmur Abdomen- normal bowel sounds, soft, nontender Extremities- Status post right BKA and status post left AKA Lumbar- Deep wound to the spine in his back, no drainage, metal seen in the spine Neuro- alert, oriented x 3; PERRL, EOMI; no facial palsy; no dysarthria, move upper extremities, cervical paraplegia Skin- warm & dry Results & Data Vital Signs (Past 12 Hours) Vital Signs Temp Pulse Pulse Pulse Resp BP Pulse Ox 09/11/18 16:00 36.5 C 50 L 18 154/82 H 99 09/11/18 15:28 54 L 09/11/18 11:00 36.8 C 59 L 18 156/87 H 99 09/11/18 07:33 36.9 C 58 L 18 130/85 97 (1) Vomiting Nausea presence: with nausea Vomiting Intractability: non-intractable Vomiting type: unspecified Qualified Code(s): R11.2 - Nausea with vomiting, unspecified
--- OUTSIDE RECORDS SUMMARY | 2018-09-15 15:49 | External Medical Summary | Continuity of Care Document ---
:1965 Author Name Willy Garcia, Provider Address Unavailable Unavailable , Care Team Providers Name Role Phone Chyna Garcia, Titi Unavailable [email or web address] Teresa Subramanian PA-C Unavailable [email or web address] Nat Garcia, Provider Unavailable [email or web address] MARY Thornton Unavailable Unavailable Unavailable Unavailable Unavailable Problems Neurogenic bladder (596.54) (N31.9) Gastroesophageal reflux disease (530.81) (K21.9) Hearing loss, bilateral (389.9) (H91.93) Osteomyelitis, pelvic region and thigh (730.25) (M86.9) Urinary tract infection (599.0) (N39.0) Cough (786.2) (R05) Constipation (564.00) (K59.00) Cholelithiasis (574.20) (K80.20) Cardiomyopathy, hypertrophic (425.18) (I42.2) Anemia (285.9) (D64.9) Hypotension (458.9) (I95.9) Quadriplegia (344.00) (G82.50) 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 MARI Subramanian Start: 01-Nov-2017 Quantity: 90 Refills: 3 Multiple Vitamins Oral Tablet; TAKE 1 TABLET DAILY. Refills: 0 Folic Acid 1 MG Oral Tablet; Take 1 tablet daily Start: 23-Jul-2018 Refills: 0 Aspirin 81 MG TABS; Take 1 tablet daily Start: 28-Dec-2014 Refills: 0 diazePAM 2 MG Oral Tablet; TAKE 2 TABLET Bedtime ALBERT Subramanian Start: 18-Aug-2015 Quantity: 60 Refills: 2 Senokot 8.6 MG Oral Tablet; TAKE 2 TABLET Daily Start: 15-Nov-2016 Refills: 0 Gabapentin 300 MG Oral Capsule; TAKE 1 CAPSULE 3 times daily MARI Subramanian Start: 27-Dec-2017 Quantity: 90 Refills: 3 Ferrous Sulfate 325 (65 Fe) MG Oral Tablet; Take 1 tab let twice daily MARI Subramanian Start: 23-Jun-2018 Refills: 0 MiraLax Oral Powder; TAKE 17 GM Daily PRN MARI Subramanian Start: 23-Jun-2018 Refills: 0 Famotidine 20 MG Oral Tablet; take 1 tablet by mouth Radha Fuller Start: 03-Sep-2016 Quantity: 180 Refills: 3 Vitamin C 1000 MG Oral Tablet; TAKE 1 TABLET Every other day Refills: 0 Procedures History of Orchiectomy Left Status: Comp leted History of Surgery Penis Status: Complet ed History of Incision And Drainage Of Abscess Lumbar Spine Status: Completed History of Amputation Of Leg Below Knee Status: Completed History of Amputation Of Leg Above Knee Status: Completed History of Cholecystectomy Laparoscopic Status: Completed Immunizations Fluzone Quadrivalent 0.5 ML Intramuscular Suspension On: May-2017 11:26 Lot #: [id number], [employer] Fluzone Quadrivalent Intramuscular Suspension On: 8 16:07 Lot #: [id number], [employer] Social History - Smoking Status Never smoker Plan of Treatment Planned Observations Planned Goals not documented Results No Known Results Results not documented Encounters Appointment; Teresa Subramanian PA-C 08-Apr-2018 15:30 Encounter Diagnosis: Problem not documented Appointment; Teresa Subramanian PA-C 13-Jan-2018 10:30 Encounter Diagnosis: Problem not documented Appointment; Teresa Subramanian PA-C 27-Nov-2017 11:00 Encounter Diagnosis: Problem not documented Appointment; Teresa Subramanian PA-C 10-Sep-2017 13:00 Encounter Diagnosis: Problem not documented Appointment; Titi Clemente M.D. 19-Jun-2017 10:45 Encounter Diagnosis: Problem not documented Appointment; Elena Segura M.D. 17-May-2017 13:00 Encounter Diagnosis: Problem not documented Appointment; Titi Clemente M.D. 05-Dec-2016 13:15 Encounter Diagnosis: Problem not documented
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
== END 2018-09-11 19:58 | disposition home health service (06) | DRG 391 ==
LOC: 4E 21:41 → ED 21:41 → 4E 09-09 03:50 → SUATTDRO 09-09 04:11 → 2N 09-09 08:08